=== PATIENT | female | born 1970 | race Caucasian/White ===

== ENCOUNTER → 2018-10-02 07:41 | Outpatient (CLI) | payer OTHER, SELFPAY ==
--- NOTE | 2018-10-02 07:44 | BI_ITS ---
MAMMOGRAPHY - BILATERAL SCREENING REASON FOR EXAM: Female, 47 years old. Routine annual screening examination. PERTINENT HISTORY: Non-contributory. TECHNIQUE: Digital bilateral breast concepcion (3D mammographic acquisition) in the CC and MLO projections. 2-D mediolateral oblique (MLO) and craniocaudad (CC) views of both breasts were obtained. CAD: Full Field Digital Mammography with Computer Added Detection was performed. COMPARISON: Comparison is made with prior outside examination dated January 26, 2017. FINDINGS: Breast Composition: There are scattered areas of fibroglandular density. There are no dominant masses or suspicious calcifications. Stable appearance of the small bilateral axillary lymph nodes. No other significant abnormalities are identified. There has been no significant change since the prior study. BI/SCREEN MAMM (CAD) W/CONCEPCION BILAT IMPRESSION: Stable bilateral screening mammogram. Yearly follow-up mammogram recommended. (A) ASSESSMENT CATEGORY: BIRADS Category 2: Benign. A letter regarding these results will be sent to the patient by the facility within 30 days. Approximately 10% of breast cancers are not detected by mammography. A normal mammogram should not delay biopsy of a clinically suspicious abnormality. [id number] Electronically Signed: Michael Frey, at 10:06 EST , Service support ,
== END ==
PROVIDERS: Referring Provider Nurse Practitioner Women's Health; Visit Provider Nurse Practitioner Women's Health
DX: Z12.31 Encounter for screening mammogram for malignant neoplasm of breast (principal)
CPT/HCPCS: 77063; 77067

== ENCOUNTER → 2019-08-01 10:53 | Outpatient (CLI) | payer OTHER, SELFPAY ==
[2019-08-01 10:23] VITALS: BMI 30.6
[2019-08-01 12:32] LABS: Follicle Stimulating Hormone 47.8 mIU/mL; Thyroid Stim Hormone (TSH) 1.44 uIU/mL (0.358-3.74)
== END ==
PROVIDERS: Family Provider Nurse Practitioner Primary Care; PCP Nurse Practitioner Primary Care; Referring Provider Nurse Practitioner Women's Health; Visit Provider Nurse Practitioner Women's Health
DX: R23.2 Flushing (principal)
CPT/HCPCS: 36415; 83001; 84443

== ENCOUNTER 2019-10-11 12:30 | Outpatient (RCR) | payer OTHER, SELFPAY ==
[2019-08-01 10:23] VITALS: BMI 30.6
--- NOTE | 2019-08-22 09:37 | HP.OTEVAL_ITS ---
Patient's Visit Information BESSIE RUBIO is a 48 year old F, referred to Occupational Therapy by Esmer Miguel, with a diagnosis of L lateral epicondylitis. Date of Evaluation: 08/22/19 Occupational Therapist: Tonya Mahmood, BRIAN/Anaid - Subjective Subjective: Bessie Hanson' arrived and noted that she has been having ongoing L elbow pain for the last 6 months. 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 - ADLs Dressing: Pants, Socks, Shoes Fasteners: Zippers Eating: Cut food, Drink from glass Bathing: Handle washcloth & soap, Squeeze shampoo bottle Toileting: Manage clothing Kitchen: Chop with knife, Peel fruits & vegetables, Open jars, Lift gallon of milk, Pour from pitcher, Lift saucepan, Take dish out of oven, Load/unload child adolescent psychiatrist, Place dish in microwave Household: Laundry Miscellaneous: Turn pages in book, Use computer keyboard, Drive Comments: holding book during storytime Comments: She is R hand dominant but having pain with all bilateral and L sided tasks in L elbow. - Pain L elbow 4 Pain Intensity Range: 1, 8 - Objective Objective/Observation: increased tenderness with palpation of ED and ECRB; positive Cornelius test; increased numbness and tingling with elbow flexion tasks. - ROM Elbow: WFL MP: WFL PIP: WFL DIP: WFL ROM Comments: ROM is WFL. - Strength Soda Dialyzer: flexed R 51, L 26 ; ext position 2 R 31, L 17 Lateral Pinch: R 21, L 15 Tripod Pinch: R 17, L 13 Tip-to-Tip Pinch: R 14, L 10 - Sensation Thumb: R 2.83, L 2.83 Index: R 2.83, L 2.83 Middle: R 2.83, L 2.83 Ring: R 2.83, L 2.83 Little: R 2.83, L 2.83 - Special Tests Elbow Flexion Test - Cubital Tunnel: positive - Quick DASH-Disab of Arm,Shoulder& Hand Quick DASH Score: 48.3325 - Tennis Elbow Tennis Elbow Score: 50 - Goals Goal:: Gianni to increase l toll service observer in flexed and extended positions by 15-20 lbs to promote increased stability of L UE 4/5 trials 80% of the time by d/c. Goal:: Gianni to be (I) to complete pain management provisiona nd not have more than 1/10 pain with repetitive tasks 4/5 trials 80% of the time by d/c. Goal:: Josesito to be (i) to implmenet proper ergonomic and body position techniques to decrease increase load on L UE and elbow 4/5 trials 80% of the time to help manage pain and promote returning to PLOF by d/c. Goal:: Josesito to be (i) to complete all ADL/IADLs including cooking, lifting loaded pots/pans, and general self-care tasks without increase in symptoms 4/5 trials 80% of the time by d/c. Goal:: Josesito to be (I) to complete daily HEP for use of splint, pain management, strenthening with PRE, and general ergonomic techniques to promote decreased symptoms and returning to PLOF 4/5t rials 80% of the time by d/c. - Rehabilitation General Assessment: Josesito completed OT initial evaluation on this date of 08/22/19. She noted symptoms of lateral epicondylitis started about 6 months ago and have progressed with symptoms of pain and discomfort. 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 Josesito to completed skilled OT to promote increase strength, ROM, pain management and provision, ergonomic training and general ability to return to PLOF by discharge. Rehabilitation Potential: Good - Anticipated Interventions Anticipated Interventions: A/AAROM/PROM, Strengthening, Edema Control, Massage, Triggerpoint Release, Modalities, Orthoses, Joint Protection/Energy Conservation, Ergonomic Education, Fine Motor Coord/Danielito, ADL Training, Caregiver Training, Home Program - Visit Plan Frequency: 2x /Week Duration: 4 Weeks General Plan: Josesito to complete skilled OT services to promote pain management, strength, return to ADL/IADLs, and general ability to complete daily tasks without increase in pain by d/c. TEXT: Thank you for the opportunity to evaluate your patient. For Medicare and Medicare HMO plans, please review the plan of care and approve it. It will need to be FAXED BACK to us at [phone] for Medicare purposes. Please let me know if there are questions or concerns regarding this plan of care. Physician Signature: Date:
--- NOTE | 2019-09-13 10:44 | HP.OTREVAL ---
Esmer Miguel, It has been my pleasure to treat BESSIE RUBIO over the last 7 visits for L lateral epicondylitis. Please see the progress note below for an update on the occupational therapy plan of care! Subjective: Arrived 14 mins late due to weather. Noted has follow up with [facility] today. Objective/Function: Completed new measurements today 09/13/19 and results aas follows: Strength. - turret press operator flexed R 59, L 40. - turret press operator ext R 52, L 35. - lateral 19, L 15. - tripod R 14, L 12. - pinch R 10, L 10. Positiontesting for cubitol tunnel. Josesito has increased in both flexed and ext linoleum mechanic strengths. She is progressing well but remains symptomatic. Plan Frequency: 2x /Week Duration: 2 Weeks Visits in this POC: 8 Plan: continue POC for 2x2 weeks for continue strengthening and nerve glides. She has follow- up with at [facility] today. Talked briefly on the potential of cortisone injection if she still feels she is having pain. She noted pain only with extended movements. Numbness and tingling remain intermittently. Also discussed with patient the potential of requesting nerve conduction test. She has been completing HEP which inlcude ulnar nerve and median nerve glides. She has improved but still has some lingering symptoms. OT to continue [id number] to promote continue strength and endurance for L elbow and continue to progress. Goals - Goals Goal:: Gianni to increase l turret press operator in flexed and extended positions by 15-20 lbs to promote increased stability of L UE 4/5 trials 80% of the time by d/c. Goal:: Gianni to be (I) to complete pain management provisiona nd not have more than 1/10 pain with repetitive tasks 4/5 trials 80% of the time by d/c. Goal:: Josesito to be (i) to implmenet proper ergonomic and body position techniques to decrease increase load on L UE and elbow 4/5 trials 80% of the time to help manage pain and promote returning to PLOF by d/c. Goal:: Josesito to be (i) to complete all ADL/IADLs including cooking, lifting loaded pots/pans, and general self-care tasks without increase in symptoms 4/5 trials 80% of the time by d/c. Goal:: Josesito to be (I) to complete daily HEP for use of splint, pain management, strenthening with PRE, and general ergonomic techniques to promote decreased symptoms and returning to PLOF 4/5t rials 80% of the time by d/c. Anticipated Interventions Anticipated Interventions: A/AAROM/PROM, Strengthening, Edema Control, Massage, Triggerpoint Release, Modalities, Orthoses, Joint Protection/Energy Conservation, Ergonomic Education, Fine Motor Coord/Danielito, ADL Training, Caregiver Training, Home Program Please do not hesitate to contact me at [phone] by phone or if you have questions or concerns regarding this new plan of care! Sincerely, Tonya Mahmood, OTR/L
--- NOTE | 2019-10-11 14:19 | HP.OTDCSUM ---
HP - OT D/C Summary It has been my pleasure to treat BESSIE RUBIO under orders from Esmer Miguel, for the diagnosis of L lateral epicondylitis for a total of 11 visit(s). Please see the following information for a summary of their discharge status. - Overall Improvement % Improvement: 92 - Objective Objective/Function: Josesito completed reassessment on this date of 10/11/2019 and results are as follows: Strength: tool and die repair in flexed R 54, L 58 lbs. tool and die repair in ext R 66, L 43 lbs. lateral R 20, L 16 lbs. tripod R 19, L 15 lbs. pincer R 13, L 12 lbs. Josesito has improved significantly with measurements and is no longer having significant pain. - Goals Patient Goals: Regain Mobility, Regain Strength, Decrease Pain, Return to Work, Improve Fine Motor Skills, Use Hand/Wrist/Arm Normally Again, Sleep Better, Decrease Tingling/Numbness, Increase ROM, Be More Independent in ADLS, Resume Former Household Responsibilities (Cooking,Cleaning,Yard, etc.), Resume Hobbies Goal:: Gianni to increase l tool and die repair in flexed and extended positions by 15-20 lbs to promote increased stability of L UE 4/5 trials 80% of the time by d/c. Goal:: Gianni to be (I) to complete pain management provisiona nd not have more than 1/10 pain with repetitive tasks 4/5 trials 80% of the time by d/c. Goal:: Josesito to be (i) to implmenet proper ergonomic and body position techniques to decrease increase load on L UE and elbow 4/5 trials 80% of the time to help manage pain and promote returning to PLOF by d/c. Goal:: Josesito to be (i) to complete all ADL/IADLs including cooking, lifting loaded pots/pans, and general self-care tasks without increase in symptoms 4/5 trials 80% of the time by d/c. Goal:: Josesito to be (I) to complete daily HEP for use of splint, pain management, strenthening with PRE, and general ergonomic techniques to promote decreased symptoms and returning to PLOF 4/5t rials 80% of the time by d/c. - Plan Plan: Josesito has been completing home exercises program and is doing well with all exercises and pain management techniques. She will be d/c'd at this time and is to call with questions/concerns. - D/C Information If there are questions or concerns regarding this patient's occupational therapy, please fell free to call me at [phone]. Thank you for the referral of this patient. Sincerely, Tonya Mahmood, OTR/L
== END 2019-10-11 19:00 | disposition home or self-care (01) ==
LOC: OT 12:30
PROVIDERS: Family Provider Nurse Practitioner Primary Care; PCP Nurse Practitioner Primary Care; Referring Provider Physician Assistant; Visit Provider Physician Assistant
DX: M77.12 Lateral epicondylitis, left elbow (principal)
CPT/HCPCS: 97035; 97110; 97166; 97168; 97530

== ENCOUNTER → 2019-11-19 | Outpatient (CLI) | payer OTHER, SELFPAY ==
[2019-08-01 10:23] VITALS: BMI 30.6
--- NOTE | 2019-11-19 07:43 | BI_ITS ---
MAMMOGRAPHY - BILATERAL SCREENING REASON FOR EXAM: Female, 48 years old. Routine annual screening examination. PERTINENT HISTORY: Non-contributory. TECHNIQUE: Digital bilateral breast concepcion (3D mammographic acquisition) in the CC and MLO projections. 2-D mediolateral oblique (MLO) and craniocaudad (CC) views of both breasts were obtained. CAD: Full Field Digital Mammography with Computer Added Detection was performed. COMPARISON: Comparison is made with prior study dated October 02, 2018. FINDINGS: Breast Composition: There are scattered areas of fibroglandular density. There are no dominant masses or suspicious calcifications. Stable benign-appearing bilateral axillary lymph nodes. No other significant abnormalities are identified. There has been no significant change since the prior study. BI/SCREEN MAMM (CAD) W/CONCEPCION BILAT IMPRESSION: Stable bilateral screening mammogram. Yearly follow-up mammogram recommended. (A) ASSESSMENT CATEGORY: BIRADS Category 2: Benign. A letter regarding these results will be sent to the patient by the facility within 30 days. Approximately 10% of breast cancers are not detected by mammography. A normal mammogram should not delay biopsy of a clinically suspicious abnormality. [id number] Electronically Signed: Michael Frey, at 10:41 EDT , Service support ,
== END | disposition home or self-care (01) ==
PROVIDERS: Family Provider Nurse Practitioner Primary Care; PCP Nurse Practitioner Primary Care; Referring Provider Nurse Practitioner Women's Health; Visit Provider Nurse Practitioner Women's Health
DX: Z12.31 Encounter for screening mammogram for malignant neoplasm of breast (principal)
CPT/HCPCS: 77063; 77067

== ENCOUNTER → 2020-02-27 | Outpatient (CLI) | payer OTHER, SELFPAY ==
[2020-02-27 08:26] VITALS: BMI 29.7
[2020-03-04 16:55] LABS: HPV APTIMA, High Risk Negative (Negative)
== END | disposition home or self-care (01) ==
LOC: LABSPEC 13:31
PROVIDERS: PCP Nurse Practitioner Primary Care; Referring Provider Nurse Practitioner Women's Health; Visit Provider Nurse Practitioner Women's Health
DX: Z12.4 Encounter for screening for malignant neoplasm of cervix (principal)
CPT/HCPCS: 87624; 88175; G0145

== ENCOUNTER → 2021-02-11 11:16 | Outpatient (CLI) | payer OTHER, SELFPAY ==
[2020-02-27 08:26] VITALS: BMI 29.7
--- NOTE | 2021-02-11 11:19 | BI_ITS ---
MAMMOGRAPHY - BILATERAL SCREENING REASON FOR EXAM: Female, 50 years old. Routine annual screening examination. PERTINENT HISTORY: Non-contributory. TECHNIQUE: Digital bilateral breast concepcion (3D mammographic acquisition) in the CC and MLO projections. 2-D mediolateral oblique (MLO) and craniocaudad (CC) views of both breasts were obtained. CAD: Full Field Digital Mammography with Computer Added Detection was performed. COMPARISON: Comparison is made with prior study dated 11/19/2019 and 10/02/2018. FINDINGS: Breast Composition: There are scattered areas of fibroglandular density. There are no dominant masses or suspicious calcifications. Stable small bilateral benign-appearing axillary lymph nodes. No other significant abnormalities are identified. There has been no significant change since the prior study. BI/SCRN MAMM (CAD)W/CONCEPCION BILAT IMPRESSION: Stable bilateral screening mammogram. Yearly follow-up mammogram recommended. (A) ASSESSMENT CATEGORY: BIRADS Category 2: Benign. A letter regarding these results will be sent to the patient by the facility within 30 days. Approximately 10% of breast cancers are not detected by mammography. A normal mammogram should not delay biopsy of a clinically suspicious abnormality. [id number] Electronically Signed: Michael Frey MD at 12:18 EDT , Service support ,
== END ==
PROVIDERS: PCP Nurse Practitioner Primary Care; Referring Provider Nurse Practitioner Women's Health; Visit Provider Nurse Practitioner Women's Health
DX: Z12.31 Encounter for screening mammogram for malignant neoplasm of breast (principal)
CPT/HCPCS: 77063; 77067

== ENCOUNTER → 2022-03-17 | Outpatient (CLI) | payer OTHER, SELFPAY ==
--- NOTE | 2022-03-17 08:10 | BI_ITS ---
MAMMOGRAPHY - BILATERAL SCREENING REASON FOR EXAM: Female, 51 years old. Routine annual screening examination. PERTINENT HISTORY: Non-contributory. TECHNIQUE: Digital bilateral breast concepcion (3D mammographic acquisition) in the CC and MLO projections. 2-D mediolateral oblique (MLO) and craniocaudad (CC) views of both breasts were obtained. CAD: Full Field Digital Mammography with Computer Added Detection was performed. COMPARISON: Comparison is made with prior study dated 02/11/2021 and 11/19/2019. FINDINGS: Breast Composition: There are scattered areas of fibroglandular density. There are no dominant masses or suspicious calcifications. Stable small benign-appearing bilateral axillary lymph nodes. No other significant abnormalities are identified. There has been no significant change since the prior study. BI/SCRN MAMM (CAD)W/CONCEPCION BILAT IMPRESSION: Stable bilateral screening mammogram. Yearly follow-up mammogram recommended. (A) ASSESSMENT CATEGORY: BIRADS Category 2: Benign. A letter regarding these results will be sent to the patient by the facility within 30 days. Approximately 10% of breast cancers are not detected by mammography. A normal mammogram should not delay biopsy of a clinically suspicious abnormality. [id number] Electronically Signed: Michael Frey MD at 9:04 EDT ,
== END | disposition home or self-care (01) ==
LOC: OPBI 08:09
PROVIDERS: PCP Nurse Practitioner Primary Care; Visit Provider Nurse Practitioner Women's Health
DX: Z12.31 Encounter for screening mammogram for malignant neoplasm of breast (principal)
CPT/HCPCS: 77063; 77067

== ENCOUNTER 2023-01-27 08:00 | Outpatient (RCR) | payer OTHER, SELFPAY ==
--- NOTE | 2022-12-02 10:46 | HP.PTEVAL ---
Patient's Visit Information BESSIE RUBIO is a 52 year old F referred to Physical Therapy by Catherine Sotelo NP-Leonidas with a diagnosis of LBP. Date of Evaluation: 12/02/22 Physical Therapist: Taran Munoz DPT, OCS, CSCS - Visit Plan Frequency: 3x /Week Duration: 4-6 Weeks Plan: 3x/week for 4 weeks for. 1. Lumbar ext ex, lumbar and thoracic ext mobs, postural focus. 2. progress mat based DLS to HEP, remodelling flexion ex when pain gone. 3. TENS and STM if painful at rest as needed. body mechanics. - Subjective LBP into central butt. Has h/o back pain. This started late october putting together puzzles and was sitting crummy posture a whole lot for 5 hrs per day. back got worse as she went. Mostly OK once she is up and moving. Goes into HS B at times L>R. Worse with sitting and much worse getting up. Cannot sit through whole [employer] service. Sleep is OK but wakes up early at 5:30 with achiness. Getting up out of bed and chairs is difficult. 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 Hobbies include walking and that is going OK after the first minute. Has tried no other treatments - Pain LBP Pain Intensity (Out of 10): 2 Pain Intensity Range: 0, 7 - Objective Walks easily without problems, , transfers with obvious pain, more pain as she sits and tends to sacral sit with flat lordosis rather than keep curvature. Tender to PA pressure slightly in mid lumbar spine. Lumbar AROM ext mod limited and painful centrally, SB full and slight L pain, flexion hesitant but able. + SLR L and + slump L >R. reflexes 2/3 patella and achilles. Sensation LE WNL to gross light touch. Shows no myotoomal abnormalities but weakness L leg due to pain. repetitive extension and seated extension shows improved transfer with less pain. - Balance/Special Test Scores Oswestry Low Back Score: 19 - Goals Goal 1:: Full lumbar arom without pain Goal Time Frame: 4-6 Weeks Goal 2:: patient trasnfer without evidence pain Goal Time Frame: 4-6 Weeks Goal 3:: Pt feel 90% better and 1/10 pain Goal Time Frame: 4-6 Weeks Goal 4:: I appropriate management of condition, body mechanics HEp of DLS Goal Time Frame: 4-6 Weeks - Rehabilitation Potential Physical Therapy Diagnosis: Likely discal pathology creating pain and difficult movement. Rehabilitation Potential: Good - Anticipated Interventions Patient/Client Instruction: Educate patient on: Condition, Plan of Care For the Purpose of:: To decrease pain, To increase ROM, To improve nutrient delivery to tissue, To improve muscle performance and motor function, To increase tolerance to activity/condition/position, To improve ability of physical actions for home/community/work/leisure Therapeutic Exercise to Include: Strength training, Postural training, Passive ROM, Active ROM For the Purpose of:: To decrease pain, To increase ROM, To improve nutrient delivery to tissue, To increase tolerance to activity/condition/position Manual Therapy Techniques to Include: Mobilization, Passive ROM, Soft tissue mobilization For the Purpose of:: To decrease pain, To decrease swelling/inflammation, To increase ROM, To improve nutrient delivery to tissue TENS: Yes For the Purpose of:: To decrease pain, To increase ROM, To improve nutrient delivery to tissue, To improve muscle performance and motor function, To improve ability of physical actions for home/community/work/leisure Thank you for the opportunity to evaluate your patient. For Medicare and Medicare HMO plans, please review the plan of care and approve it. It will need to be FAXED BACK to us at [phone] for Medicare purposes. For Medicare only, by signing this I certify the plan of care. Please let me know if there are questions or concerns regarding this plan of care. Physician Signature: Date:
--- NOTE | 2023-01-27 08:48 | HP.PTREVAL_ITS ---
Catherine Sotelo, AUTOMATIC NAILING MACHINE OPERATOR-C, It has been my pleasure to treat BESSIE RUBIO over the last 13 visits for LBP. Please see the progress note below for an update on the physical therapy plan of care! Subjective: I can sit much longer than I used to. However Pain in L posterior upper leg and numbness in L heel. MRI showed disc problems and sees spine doctor today at 3 oclock. Was improving but then tingling started. HEP going well. Getting stronger. Activities: avoids pifting things from the floor. Otherwise normal. Objective/Function: LB ext still max limited and painful in L posterior leg. + L SLR still and slump test. Tingling in L leg is mostly new since eval. Otherwise, pain is much better and able to sit longer. Walking well without antalgia today although sensation in L LE doesn't feel perfect. New goal set adn goals still appropriate with fair prognosis as she is currently 80% improved. Plan Plan: Pt wishes to hold until after spinal consult. Will call after that visit. if continuing PT will do 2x/week for 3-4 weeks for continued attempted ROM, body mechanics with lifting, aggressive LB stretching to yoga and progression of overall home core [id number] as needed. Balance/Gait/Functional tests - Balance/Special Test Scores Oswestry Low Back Score: 9 Goals Goal 1:: Full lumbar arom without pain Goal Time Frame: 4-6 Weeks Goal Progress: ext not better Goal 2:: patient trasnfer without evidence pain Goal Time Frame: 4-6 Weeks Goal Progress: Goal Met Goal 3:: Pt feel 90% better and 1/10 pain Goal Time Frame: 4-6 Weeks Goal Progress: 80% Goal 4:: I appropriate management of condition, body mechanics HEp of DLS Goal Time Frame: 4-6 Weeks Goal Progress: Progressing Goal 5:: Tingling gone and I final HEP including body mechanics. Goal Time Frame: 2-4 Weeks Goal Progress: NEW GOAL Anticipated Interventions Patient/Client Instruction: Educate patient on: Condition, Plan of Care For the Purpose of:: To decrease pain, To increase ROM, To improve nutrient delivery to tissue, To improve muscle performance and motor function, To increase tolerance to activity/condition/position, To improve ability of physical actions for home/community/work/leisure Therapeutic Exercise to Include: Strength training, Postural training, Passive ROM, Active ROM For the Purpose of:: To decrease pain, To increase ROM, To improve nutrient delivery to tissue, To increase tolerance to activity/condition/position Manual Therapy Techniques to Include: Mobilization, Passive ROM, Soft tissue mobilization For the Purpose of:: To decrease pain, To decrease swelling/inflammation, To increase ROM, To improve nutrient delivery to tissue TENS: Yes For the Purpose of:: To decrease pain, To increase ROM, To improve nutrient delivery to tissue, To improve muscle performance and motor function, To improve ability of physical actions for home/community/work/leisure Please do not hesitate to contact me at [phone] by phone or if you have questions or concerns regarding this new plan of care! Sincerely, Taran Munoz, DPT, OCS, CSCS
--- NOTE | 2023-01-30 12:48 | HP.PTDCSUM_ITS ---
It has been my pleasure to treat BESSIE RUBIO referred by PATRICIA Langford, with the diagnosis of LBP for a total of 13 visit(s). Discharge Date: 01/30/23 Please see the following information for a summary of their discharge status. Subjective: I can sit much longer than I used to. However Pain in L posterior upper leg and numbness in L heel. MRI showed disc problems and sees spine doctor today at 3 oclock. Was improving but then tingling started. HEP going well. Getting stronger. Activities: avoids pifting things from the floor. O therwise normal. LBP Pain Intensity (Out of 10): 1 % Improvement: 80 Objective/Function: LB ext still max limited and painful in L posterior leg. + L SLR still and slump test. Tingling in L leg is mostly new since eval. Otherwise, pain is much better and able to sit longer. Walking well without antalgia today although sensation in L LE doesn't feel perfect. New goal set adn goals still appropriate with fair prognosis as she is currently 80% improved. Goal 1:: Full lumbar arom without pain Goal Progress: ext not better Goal 2:: patient trasnfer without evidence pain Goal Progress: Goal Met Goal 3:: Pt feel 90% better and 1/10 pain Goal Progress: 80% Goal 4:: I appropriate management of condition, body mechanics HEp of DLS Goal Progress: Progressing Goal 5:: Tingling gone and I final HEP including body mechanics. Goal Progress: NEW GOAL Plan: Pt called and has seen spinal surgeon and will be having surgery in the near future. She will not be returning to PT prior to that and will be discontinued. Discharge Comments: D/C due to pending surgery If there are questions or concerns regarding this patient's physical therapy, please feel free to call me at [phone]. Thank you for the referral of this patient. Sincerely, Taran Munoz, DPT, OCS, CSCS Balance/Gait/Functional tests - Balance/Special Test Scores Oswestry Low Back Score: 9
== END 2023-01-27 19:00 | disposition home or self-care (01) ==
LOC: PT 08:00
PROVIDERS: PCP Nurse Practitioner Primary Care; Referring Provider Nurse Practitioner Primary Care; Visit Provider Nurse Practitioner Primary Care
DX: M54.50 Low back pain, unspecified (principal)
CPT/HCPCS: 97014; 97110; 97140; 97161; 97164; 97530; G0283

== ENCOUNTER → 2023-07-04 | Outpatient (CLI) | payer OTHER, SELFPAY | END | disposition home or self-care (01) | LOC: LABSPEC 15:29 | PROVIDERS: PCP Nurse Practitioner Primary Care; Referring Provider Nurse Practitioner Women's Health; Visit Provider Nurse Practitioner Women's Health | DX: N89.8 Other specified noninflammatory disorders of vagina (principal); R30.0 Dysuria | CPT/HCPCS: 87070; 87086; 87205 ==

== ENCOUNTER 2023-07-05 13:00 | Outpatient (RCR) | payer OTHER, SELFPAY ==
--- NOTE | 2023-04-05 10:06 | HP.PTEVAL ---
Patient's Visit Information Visit Information Visit Information: BESSIE RUBIO is a 52 year old F referred to Physical Therapy by Dr. Genaro Barajas DO with a diagnosis of LUMBAR SPINAL STENOSIS. Date of Evaluation: 04/05/23 Physical Therapist: Francine Veras PT, Cert MDT Visit Plan Frequency: 2-3x /Week Duration: 4-6 Weeks Plan: POSTURE CORRECTION/STRENGTHENING, INSTRUCTION IN APPROPRIATE *BODY MECHANICS* AND ACTIVITY MODIFICATIONS. DLS STARTING WITH A NEUTRAL SPINE PROGRESSING ROM TOLERATED. CHUCK LE ROM, STRETCHING AND STRENGTHENING. HEP INSTRUCTION. Subjective Subjective: SURGERY: S/P LAMINECTOMY/DISCECTOMY 03/14/[address] BARAJAS Work/Leisure: UNEMPLOYEED. STAY AT HOME MOM WITH 2 KIDS AT HOME. Disability: NO Present symptoms: LOW BACK PAIN (MAINLY INCISIONAL), L HIP PAIN AND TIGHTNESS. CHUCK LE WEAKNESS AND GENERAL WEAKNESS. DENIES CHUCK LE NUMBNESS OR TINGLING. L FOOT TINGLING/NUMBNESS PRIOR TO SURGERY. Present since: 20 YEARS WITH FLARE UP IN OCTOBER 2022 Pain Scale: WORST 3/10, LEAST 0/10 Currently: 0/10 Is it getting better, worse or staying the same: GETTING BETTER Commenced as a result of: FLARE UP WAS CAUSED BY PROLONGED SITTING Symptoms at onset: LBP Worse: WALKING Better: ICE, STRETCHING Disturbed sleep: NO Previous history/Previous treatment: PHYSICAL THERAPY Treatment this episode: BACK SURGERY Gait: WALKING 30 MIN 2 TIMES A DAY. MY FOOT TURNS OUT. PATIENT REPORTS HER HIP GETS TIGHT WHEN SHE TRIES TO TURN HER FOOT FORWARD AND IT IS MORE COMFORTABLE TO TURN IT OUT BUT IT IS GETTING BETTER. Bowel or Bladder Dysfunction: NO Accidents: NO Unexplained weight loss: NO Imaging: NONE SINCE SURGERY PMH/Recent major surgery: DEPRESSION AND FIBROMYALGIA. OTHER: PATIENT REPORTS DR. BARAJAS LIFTED ALL OF HER RESTRICTIONS AT HER LAST VISIT WITH HIM 2 DAYS AGO (EXCEPT GOING INTO BODIES OF WATER). Objective Objective: Sitting/Standing Posture: POOR. REDUCED LUMBAR LORDOSIS. NO RELEVANT LATERAL SHIFT. Active Correction of posture: NE Other Observations: THIS PATIENT AMBULATES INDEP'LY INTO PT WITHOUT ANY AD'S AND TOEING OUT WITH R LE (ABLE TO CORRECT). INDEP TRANSFER SIT TO STAND WITHOUT UE ASSIST. INDEP TRANSFERS SIT TO SUPINE AND REVERSE WITH MINIMAL GUARDING. Sensory deficit: CHUCK LE LIGHT TOUCH SENSATION IS GROSSLY INTACT AND SYMMETRICAL. ROM deficit: CHUCK HIP, HS, AND GASTROC-SOLEUS COMPLEX TIGHTNESS L>R Motor deficit: R HIP 4/5, KNEE 5/5, ANKLE 5/5. L HIP 4-/5, KNEE 4/5, ANKLE 5/5 Reflexes: R QUAD 2/3, ACHILLES 2/3. L QUAD 1/3, ACHILLES ABSENT. Dural Signs: POSITIVE LLE. Lumbar mvmt loss: flex - MOD ext - LONA R SG - MOD L SG - LONA PATIENT DENIES PAIN WITH LUMBAR ROM TESTING ALL PLANES. REPORTS FEELING L HS PULL WITH LUMBAR FLEXION TESTING. Core strength: POOR Palpation: INCISION IS COVERED. PATIENT REPORTS JUST RECENTLY HAVING TOMY REMOVED AND THAT INCISION IS CLOSED WITHOUT ANY OPEN AREAS OR DRAINAGE BUT IT RUBS ON HER CLOTHES SO SHE WAS TOLD TO COVER IT UNTIL IT FEELS BETTER. THIS PT REVIEWED SIGNS OF INFECTION AND INSTRUCTED PATIENT TO SEEK MEDICAL ATTENTION RIGHT AWAY IF SIGNS DEVELOP. 30 STS TEST: X10 WITH NO UE ASSIST. TREATMENT: NEUROMUSCULAR REEDUCATION - RETRAINING OF MVMT AND POSTURE FOR SITTING, LYING AND STANDING ACTIVITIES. INITIATED HEP WITH SUPINE ISO ABDOMINALS X 10, 3 TIMES A DAY AND SUPINE CHUCK LE DURAL STRETCHING X 10 TO 20 REPS 5-6 TIMES A DAY. Balance/Special Test Scores Oswestry Low Back Score: 14 30 Second Chair Rise Test Seconds: 10 Goals Goal 1:: DECREASE C/O LB AND L LE SX'S. Goal Time Frame: 4-6 Weeks Goal 2:: IMPROVE LIFTING, WALKING, SITTING, SOCIAL LIFE, TRAVEL AND HOMEMAKING FUNCTION. Goal Time Frame: 4-6 Weeks Goal 3:: INSTRUCT IN PROPHYLAXIS Goal Time Frame: 4-6 Weeks Anticipated Interventions Patient/Client Instruction: Educate patient on: Condition, Plan of Care and Risk Factors For the Purpose of:: To improve self management Therapeutic Exercise to Include: Strength training, Body mechanics, Postural training, Flexibilty training, Neuromotor development, In an aquatic setting and Dynamic Lumbar Stabilization For the Purpose of:: To decrease pain, To increase ROM, To improve muscle performance and motor function, To increase tolerance to activity/condition/position and To improve ability of physical actions for home/community/work/leisure Cryotherapy (ice pack, ice massage): Yes Thermo therapy (hot pack): Yes For the Purpose of:: To decrease pain and To decrease swelling/inflammation Text: Thank you for the opportunity to evaluate your patient. For Medicare and Medicare HMO plans, please review the plan of care and approve it. It will need to be FAXED BACK to us at [phone] for Medicare purposes. For Medicare only, by signing this I certify the plan of care. Please let me know if there are questions or concerns regarding this plan of care. Physician Signature: Date:
--- NOTE | 2023-05-18 09:51 | HP.PTREVAL ---
Re-Evaluation Intro: Dr. Genaro Ortega, DO, It has been my pleasure to treat BESSIE RUBIO over the last 11 visits for LUMBAR SPINAL STENOSIS. Please see the progress note below for an update on the physical therapy plan of care! Subjective Subjective: PATIENT STATES SHE HASN'T BEEN HAVING ANY PAIN. SHE REPORTS SHE IS LEARNING HOW TO MOVE IN EVERYDAY LIFE. I CAN SIT THROUGH A [employer]ORATION[employer] SERVICE OR TO TRAVEL NOW. I CAN LIFT MORE AND I CAN BEND MORE TO. SHE STATES HER LEFT FOOT STILL GOES NUMB IF SHE WALKS OR SITS OR TOO MUCH. NO L FOOT NUMBNESS PRESENTLY. PATIENT REPORTS SHE IS WALKING 30 MINUTES DAILY FOR EXERCISE WITHOUT ANY SYMPTOMS. PATIENT STATES SHE IS HOPING TO BE ABLE TO CONTINUE PT TO MAKE MORE PROGRESS AND BE ABLE TO SAFELY EXERCISE ON HER OWN HERE AT . PATIENT REPORTS SHE ANSWERED THE questionnaire IN TERMS OF NUMBNESS NOT PAIN. Objective Objective/Function: PATIENT WAS SEEN TODAY FOR RE-ASSESSMENT OF PROGRESS TOWARD THE SET PT GOALS AND THE NEED FOR FURTHER PHYSICAL THERAPY VS READINESS FOR DISCHARGE. PATIENT IS MAKING GOOD PROGRESS WITH PT AND BECOMING INDEP WITH AN EX PROGRAM. SHE WANTS TO JOIN [employer] [facility] UPON DISCHARGE BUT IS NOT COMFORTABLE ON THE MACHINES YET AND HAS A HISTORY OF BACK PAIN FROM USING GYM MACHINES IN THE PAST. HER LUMBAR ROM, L HIP STRENGTH AND CORE STRENGTH ARE IMPROVING. SHE IS A GOOD CANDIDATE TO CONTINUE PT BASED ON PROGRESS MADE AND ROOM FOR FURTHER IMPROVEMENT. UPON EXAM TODAY: Sensory deficit: CHUCK LE LIGHT TOUCH SENSATION IS GROSSLY INTACT AND SYMMETRICAL. ROM deficit: CHUCK HS, AND GASTROC TIGHTNESS L>R Motor deficit: R HIP 4/5, KNEE 5/5, ANKLE 5/5. L HIP 4/5, KNEE 4/5, ANKLE 5/5 Reflexes: R QUAD 2/3, ACHILLES 2/3. L QUAD 1/3, ACHILLES ABSENT. Dural Signs: NEGATIVE CHUCK LE'S. Lumbar mvmt loss: flex - MIN ext - MOD R SG - MOD L SG - MOD PATIENT DENIES PAIN WITH LUMBAR ROM TESTING ALL PLANES. CORE STRENGTH: FAIR. Plan Plan Plan: CONTINUE 2X/WK X 3 WKS THEN 1X/WK X 3 WKS WHILE PROGRESSING TO INDEP GYM EX. ADD CALF STRETCHING NEXT VISIT. PROGRESS CORE AND POSTURAL STRENGTHENING TOLERATED. PROGRESS LUMBAR ROM TOLERATED. PROGRESS CHUCK LE ROM, STRETCHING AND STRENGTHEING. AVOID PERIPHERALIZATION OF SX'S AND FOCUS ON PROPER POSTURE CONTROL AND BODY MECHANICS WITH INDEP EX. Balance/Gait/Functional tests Balance/Special Test Scores Oswestry Low Back Score: 10 30 Second Chair Rise Test Seconds: 10 Goals Goals Goal 1:: DECREASE C/O LB AND L LE SX'S. Goal Time Frame: 4-6 Weeks Goal Progress: Goal Met Goal 2:: IMPROVE LIFTING, WALKING, SITTING, SOCIAL LIFE, TRAVEL AND HOMEMAKING FUNCTION. Goal Time Frame: 4-6 Weeks Goal Progress: Progressing Goal 3:: INSTRUCT IN PROPHYLAXIS Goal Time Frame: 4-6 Weeks Goal Progress: Progressing Anticipated Interventions Anticipated Interventions Patient/Client Instruction: Educate patient on: Condition, Plan of Care and Risk Factors For the Purpose of:: To improve self management Therapeutic Exercise to Include: Strength training, Body mechanics, Postural training, Flexibilty training, Neuromotor development, In an aquatic setting and Dynamic Lumbar Stabilization For the Purpose of:: To decrease pain, To increase ROM, To improve muscle performance and motor function, To increase tolerance to activity/condition/position and To improve ability of physical actions for home/community/work/leisure Cryotherapy (ice pack, ice massage): Yes Thermo therapy (hot pack): Yes For the Purpose of:: To decrease pain and To decrease swelling/inflammation Re-Evaluation Ending Re-evaluation ending: Please do not hesitate to contact me at [phone] by phone or if you have questions or concerns regarding this new plan of care! Sincerely, Francine Veras, PT, Cert MDT
--- NOTE | 2023-07-05 13:33 | HP.PTDCSUM ---
Discharge Summary D/C summary: It has been my pleasure to treat BESSIE RUBIO referred by Dr. Genaro Ortega DO, with the diagnosis of LUMBAR SPINAL STENOSIS for a total of 19 visit(s). Discharge Date: 07/05/23 Please see the following information for a summary of their discharge status. Subjective Subjective: PATIENT REPORTS SHE FEELS 100% BETTER. I FEEL STRONGER IN MY BACK AND I'VE LEARNED TO TRUST MY BACK. SHE STATES SHE FEELS COMFORTABLE WITH HER INDEP EX PROGRAM AND IS A MEMBER OF . Overall Improvement % Improvement: 100 Objective Objective/Function: PATIENT WAS SEEN FOR RE-ASSESSMENT TODAY. ALL PT GOALS HAVE BEEN MET AND PATIENT IS INDEP WITH A HEP. Motor deficit: CHUCK LE'S 5/5. Dural Signs: NEGATIVE CHUCK LE'S. Lumbar mvmt loss: flex - MIN ext - MOD R SG - MOD L SG - MOD PATIENT DENIES PAIN WITH LUMBAR ROM TESTING ALL PLANES. CORE STRENGTH: FAIR. Goals Goal 1:: DECREASE C/O LB AND L LE SX'S. Goal Progress: Goal Met Goal 2:: IMPROVE LIFTING, WALKING, SITTING, SOCIAL LIFE, TRAVEL AND HOMEMAKING FUNCTION. Goal Progress: Goal Met Goal 3:: INSTRUCT IN PROPHYLAXIS Goal Progress: Goal Met Plan Plan: D/C. PATIENT AGREEABLE. D/C Information d/c sentence: If there are questions or concerns regarding this patient's physical therapy, please feel free to call me at [phone]. Thank you for the referral of this patient. Sincerely, Francine Veras, PT, Cert MDT Balance/Gait/Functional tests Balance/Special Test Scores Oswestry Low Back Score: 0 30 Second Chair Rise Test Seconds: 10 Improvement % Improvement: 100
== END 2023-07-05 19:00 | disposition home or self-care (01) ==
LOC: PT 13:00
PROVIDERS: PCP Nurse Practitioner Primary Care; Referring Provider Orthopaedic Surgery; Visit Provider Orthopaedic Surgery
DX: M51.27 Other intervertebral disc displacement, lumbosacral region (principal); M48.061 Spinal stenosis, lumbar region without neurogenic claudication
CPT/HCPCS: 97110; 97112; 97162; 97164; 97530

== ENCOUNTER → 2023-07-06 | Outpatient (CLI) | payer OTHER, SELFPAY ==
--- NOTE | 2023-07-06 14:51 | BI_ITS ---
MAMMOGRAPHY - BILATERAL SCREENING REASON FOR EXAM: Female, 52 years old. Routine annual screening examination. PERTINENT HISTORY: Non-contributory. TECHNIQUE: Digital bilateral breast concepcion (3D mammographic acquisition) in the CC and MLO projections. 2-D mediolateral oblique (MLO) and craniocaudad (CC) views of both breasts were obtained. CAD: Full Field Digital Mammography with Computer Added Detection was performed. COMPARISON: Comparison is made with prior examination dated March 17, 2022 and February 11, 2021. FINDINGS: Breast Composition: There are scattered areas of fibroglandular density. There are no dominant masses or suspicious calcifications. Stable benign-appearing bilateral axillary lymph nodes. No other significant abnormalities are identified. There has been no significant change since the prior study. BI/SCRN MAMM (CAD)W/CONCEPCION BILAT IMPRESSION: Stable bilateral screening mammogram. Yearly follow-up mammogram recommended. (A) ASSESSMENT CATEGORY: BIRADS Category 2: Benign. A letter regarding these results will be sent to the patient by the facility within 30 days. Approximately 10% of breast cancers are not detected by mammography. A normal mammogram should not delay biopsy of a clinically suspicious abnormality. [id number] Electronically Signed: Michael Frey MD at 15:30 EST ,
== END | disposition home or self-care (01) ==
LOC: OPBI 14:50
PROVIDERS: PCP Nurse Practitioner Primary Care; Referring Provider Registered Nurse; Visit Provider Registered Nurse
DX: Z12.31 Encounter for screening mammogram for malignant neoplasm of breast (principal)
CPT/HCPCS: 77063; 77067

== ENCOUNTER → 2023-10-04 | Outpatient (CLI) | payer OTHER, SELFPAY ==
--- NOTE | 2023-10-04 | EMB_PTH ---
PATHOLOGY RESULTS PATIENT: BESSIE RUBIO LOC: [facility] U#:[id number] AGE/SX: 52/F ROOM: RE10/04/[address]: PATRICIA Salinas : 1970 BED: DIS: 10/04/2023 SPEC #: [id number] RECD: 10/04/23 08:59 STATUS: KYA GUZMAN #: [id number] SANTIAGO: 10/04/23 00:[address]: Bushra Guerrero NP DEPT: SURGICAL PATHOLOGY RECD BY: Pablo West ENTERED: 10/05/23 08:59 SP TYPE: ENDOM BX/C JO-ANN DR: PATRICIA Langford Tissues: Endometrium, NOS Procedures: Surgery Specimen Level IV HEADER OPERATION: Endometrial biopsy PRE-OP DIAGNOSIS: Abnormal uterine bleeding TISSUE SUBMITTED: Endometrial tissue MICROSCOPIC DIAGNOSIS Endometrium, biopsy: Scant strips of benign superficial glandular mucosa. See comment. AM:mark 10/06/2023 COMMENT The specimen primarily consists of mucoid material. Clinical correlation is suggested. MICROSCOPIC DESCRIPTION Slides are reviewed. GROSS DESCRIPTION Received in fixative is one container labeled with the patient's name and designated endometrial tissue. The specimen consists of multiple irregular fragments of gonzalez mucoid tissue that in aggregate measure 2.0 x 1.0 x <0.1 cm. The specimen is totally submitted in one cassette. / AM:mark 10/05/2023 TC:5 CPT: 52385
== END | disposition home or self-care (01) ==
LOC: LABSPEC 15:20
PROVIDERS: PCP Nurse Practitioner Primary Care; Referring Provider Nurse Practitioner Women's Health; Visit Provider Nurse Practitioner Women's Health
DX: N93.9 Abnormal uterine and vaginal bleeding, unspecified (principal)
CPT/HCPCS: 88305

== ENCOUNTER → 2023-10-10 | Outpatient (CLI) | payer OTHER, SELFPAY ==
--- NOTE | 2023-10-10 12:25 | US_ITS ---
INDICATION: postmenopausal bleeding EXAMINATION: Ultrasound US Pelvis Non OB Complete With Transvaginal Imaging TECHNIQUE: Transabdominal and transvaginal pelvic ultrasound was performed. Grayscale, spectral waveform, and color flow Doppler evaluation of the adnexa. COMPARISON: No relevant prior comparison study available FINDINGS: UTERUS: Anteverted. The uterus measures 8.9 x 5.4 x 4.4 cm. There is no uterine mass. The endometrial stripe measures 5.4 mm in AP diameter which is slightly thickened for a postmenopausal bleeding patient. RIGHT OVARY: 2.8 1.7 x 1.6 cm. Non-enlarged, normal echogenicity. There is normal arterial inflow and venous outflow present in the right ovary. LEFT OVARY: 2.5 x 1.6 x 1 6 cm. Non-enlarged, normal echogenicity. There is normal arterial inflow and venous outflow present in the left ovary. FREE FLUID: None. US/Pelvic w/ Transvaginal IMPRESSION: 1. Somewhat heterogeneous uterus. 2. Mild thickening of the endometrium for a postmenopausal bleeding patient. EMERGENCY DEPARTMENT AIDE consult is recommended to exclude endometrial abnormality. Electronically Signed: Raul Balderrama MD at 15:35 EST ,
--- OUTSIDE RECORDS SUMMARY | 2023-10-10 12:57 | XMS RPT_ITS | CCD ---
Author Name Unknown Address [address] [place] [address] Organization [facility] Care Team Providers Care Lab Courier Name Role Phone BRANDEN IVY, STACIE Mirza Primary Care Debby n BRANDEN IVY, STACIE Mirza Attending Unava ilable BRANDEN IVY, STACIE S Primary Care Unava ilable JACLYN BARAJAS DO Attending Unavailable BRANDEN PROGRAM MANAGER-SOLAR INSTALLATION MANAGER, STACIE S Primary Care Unava ilable BRANDEN LEIVA-SOLAR INSTALLATION MANAGER, STACIE S Primary Care Unava ilable KIRSTEN GUERRA MD, I Consulting Unavailable OZZY SAMUELS, KIRSTEN Bentley Attending Unavailable BRANDENKACEY FRANCISCON-SOLAR INSTALLATION MANAGER, STACIE S Primary Care Unava laureen GUERRA MD, KIRSTEN Bentley Attending Unavailable BRANDENKACEY LEIVA-SOLAR INSTALLATION MANAGER, STACIE S Primary Care Unava ilable OZZY SAMUELS, KIRSTEN Bentley Consulting Unavailable OZZY SAMUELS, KIRSTEN Bentley Attending Unavailable BRANDEN PROGRAM MANAGER-SOLAR INSTALLATION MANAGER, STACIE S Primary Care Unava ilable BRANDEN LEIVA-SOLAR INSTALLATION MANAGER, STACIE S Attending Unava ilable BRANDEN LEIVA-SOLAR INSTALLATION MANAGER, STACIE S Primary Care Unava ilable BRANDEN LEIVA-SOLAR INSTALLATION MANAGER, STACIE S Attending Unava ilable Janell Lynn Unavailable Unavailable Allergies Allergy Classification Reported Allergen(s) Allergy Type Date of Onset Reaction(s) Facility (1 source) Adhesive bandage Allergy to substance Blisters [facility] Medications Current Medications Medication Drug Class(es) Dates Sig (Normalized) Sig (Original) 24 hr buPROPion hydrochloride 300 mg extended release oral tablet (5 sources) Aminoketone Start: 01-11-2021 End: 2022 take 1 tablet by mouth every hour, then take 1 tablet by mouth once daily Wellbutrin XL 300 mg/24 hours oral tablet, extended release Dose : 300 mg = 1 tab(s), Oral, qDay, # 30 tab(s), 11 Refill(s), 170, cm, 11/30/21 9:02:00 EDT, Height, kg, 11/30/21 9:02:00 EDT, Dosing Weight Start Date: 11/30/21 Stop Date: 11/25/22 Status: Ordered Completed/Discontinued Medications Medication Drug Class(es) Dates Sig (Normalized) Sig (Original) zolpidem tartrate 6.25 mg extended release oral tablet (6 sources) gamma-Aminobutyric Acid-ergic Agonist Start: 08-24-2023 zolpidem 6.25 mg oral tablet, extended release Dose : 6.25 mg = 1 tab(s), Oral, qHS, PRN as needed for sleep, 0 Refill(s), 92.9 Start Date: 08/24/23 Status: Ordered Problems Problem Classification Problem Date Documented Date Episodic/Chronic Abdominal pain (3 sources) Upper abdominal pain 11-27-2019 Episodic Anxiety disorders (9 sources) Anxiety; Translations: [Generalized anxiety disorder] 06-05-2019 Chronic Cardiac dysrhythmias (6 sources) Tachycardia 09-10-2020 Episodic Esophageal disorders (5 sources) Gastroesophageal reflux disease 12-05-2019 Chronic Mood disorders (6 sources) Depressive disorder 06-05-2019 Chronic Nonspecific chest pain (5 sources) Chest discomfort 09-10-2020 Episodic Other connective tissue disease (6 sources) Fibromyalgia 06-05-2019 Episodic Other connective tissue disease (3 sources) Triggering of digit 06-06-2019 Episodic Other connective tissue disease (2 sources) Pain in calf 12-29-2022 Episodic Other non-traumatic joint disorders (1 source) Shoulder joint pain; Translations: [Pain in unspecified shoulder] Onset: 06-02-2021 Episodic Other upper respiratory disease (6 sources) Allergic rhinitis 11-19-2020 Chronic Residual codes; unclassified (6 sources) Sleep apnea 12-05-2019 Chronic Residual codes; unclassified (6 sources) Insomnia 12-05-2019 Episodic Spondylosis; intervertebral disc disorders; other back problems (1 source) Prolapsed lumbar intervertebral disc 01-24-2023 Chronic Spondylosis; intervertebral disc disorders; other back problems (7 sources) Acute back pain with sciatica; Translations: [Low back pain] 12-03-2019 Episodic Unclassified (7 sources) Patient encounter status 05-20-2021 Urinary tract infections (3 sources) Cystitis 02-16-2022 Episodic Results Test Name Value Interpretation Reference Range Facil ity Vital Signs Date Time Vital Sign Value Performing Clinician Faci lity 09-01-2023 14:40-0500 Body temperature 97.16 [degF] KIRSTEN GUERRA MD [facility] 09-01-2023 14:40-0500 Diastolic blood pressure 72 mm[Hg] KIRSTEN GUERRA MD [facility] 09-01-2023 14:40-0500 Heart rate 88 /min KIRSTEN GUERRA MD [facility] 09-01-2023 14:40-0500 Respiratory rate 18 /min KIRSTEN GUERRA MD [facility] 09-01-2023 14:40-0500 Systolic blood pressure 124 mm[Hg] KIRSTEN GUERRA MD [facility] 09-01-2023 13:44-0500 Body temperature 96.8 [degF] KIRSTEN GUERRA MD [facility] 09-01-2023 13:44-0500 Diastolic Blood Pressure Non-Invasive 71 mm[Hg] KIRSTEN GUERRA MD [facility] 09-01-2023 13:44-0500 Heart rate 88 /min KIRSTEN GUERRA MD [facility] 09-01-2023 13:44-0500 Respiratory rate 18 /min KIRSTEN GUERRA MD [facility] 09-01-2023 13:44-0500 Systolic Blood Pressure Non-Invasive 120 mm[Hg] KIRSTEN GUERRA MD [facility] 09-01-2023 13:28-0500 Body temperature 96.8 [degF] KIRSTEN GUERRA MD [facility] 09-01-2023 13:28-0500 Diastolic Blood Pressure Non-Invasive 63 mm[Hg] KIRSTEN GUERRA MD [facility] 09-01-2023 13:28-0500 Heart rate 88 /min KIRSTEN GUERRA MD [facility] 09-01-2023 13:28-0500 Mean blood pressure 77 mm[Hg] KRISTEN GUERRA MD [facility] 09-01-2023 13:28-0500 Respiratory rate 18 /min KIRSTEN GEURRA MD [facility] 09-01-2023 13:28-0500 Systolic Blood Pressure Non-Invasive 113 mm[Hg] KIRSTEN GUERRA MD [facility] 09-01-2023 13:13-0500 Diastolic Blood Pressure Non-Invasive 62 mm[Hg] KIRSTEN GUERRA MD [facility] 09-01-2023 13:13-0500 Heart rate 82 /min KIRSTEN GUERRA MD [facility] 09-01-2023 13:13-0500 Mean blood pressure 78 mm[Hg] KIRSTEN GUERRA MD [facility] 09-01-2023 13:13-0500 Systolic Blood Pressure Non-Invasive 109 mm[Hg] KIRSTEN UGERRA MD [facility] 09-01-2023 12:58-0500 Heart rate 88 /min KIRSTEN GUERRA MD [facility] 09-01-2023 12:58-0500 Mean blood pressure 80 mm[Hg] KIRSTEN GUERRA MD [facility] 09-01-2023 12:28-0500 Body temperature 97.52 [degF] KIRSTEN GUERRA MD [facility] 09-01-2023 11:25-0500 Respiratory Rate - Anes 4 br/min KIRSTEN GUERRA MD [facility] 09-01-2023 11:20-0500 Respiratory Rate - Anes 9 br/min KIRSTEN GUERRA MD [facility] 09-01-2023 11:15-0500 Body temperature 96.8 [degF] KIRSTEN GUERRA MD [facility] 09-01-2023 11:15-0500 Respiratory Rate - Anes 10 br/min KIRSTEN GUERRA MD [facility] 09-01-2023 10:45-0500 Body temperature 96.8 [degF] KIRSTEN GUERRA MD [facility] 09-01-2023 07:00-0500 Body height 170.2 cm KIRSTEN GUERRA MD [facility] 09-01-2023 07:00-0500 Body weight 94 kg KIRSTEN GUERRA MD [facility] 09-01-2023 07:00-0500 Heart rate 85 /min KIRSTEN GUERRA MD [facility] 06-02-2021 21:45-0400 Body height 170 cm TANI ENGLET DO [facility] 06-02-2021 21:45-0400 Body temperature 98.42 [degF] TANI ENGLET DO [facility] 06-02-2021 21:45-0400 Body weight 88.6 kg TANI FROMMELT DO [facility] 06-02-2021 21:45-0400 Diastolic blood pressure 85 mm[Hg] TANI ENGLET DO [facility] 06-02-2021 21:45-0400 Heart rate 89 /min TANI ENGLET DO [facility] 06-02-2021 21:45-0400 Respiratory rate 20 /min TANI ENGLET DO [facility] 06-02-2021 21:45-0400 Systolic blood pressure 138 mm[Hg] TANI ENGLET DO [facility] Encounters Encounter Date Encounter Type Care Provider Facility Start: 09-01-2023 End: 09-01-2023 ambulatory STACIE Mirza BRANDEN PROGRAM MANAGER-SOLAR INSTALLATION MANAGER Facility:A Start: 09-01-2023 End: 09-01-2023 SAME DAY STAY KIRSTEN GUERRA MD [facility] Start: 05-26-2023 End: 05-26-2023 ambulatory STACIE S BRANDEN PROGRAM MANAGER-SOLAR INSTALLATION MANAGER Facility:A Start: 05-12-2023 End: 05-13-2023 ambulatory STACIE S BRANDEN PROGRAM MANAGER-SOLAR INSTALLATION MANAGER Facility:A Start: 03-02-2023 End: 03-03-2023 ambulatory JACLYN BARAJAS DO Facility:B Start: 03-02-2023 End: 03-02-2023 Patient encounter procedure JACLYN BARAJAS DO [facility] Start: 01-19-2023 End: 01-20-2023 ambulatory STACIE S BRANDEN PROGRAM MANAGER-SOLAR INSTALLATION MANAGER Facility:B Start: 01-19-2023 End: 01-19-2023 Patient encounter procedure STACIE Mirza BRANDEN PROGRAM MANAGER-SOLAR INSTALLATION MANAGER [facility] Start: 12-31-2022 End: 01-01-2023 ambulatory STACIE OTERO PROGRAM MANAGER-SOLAR INSTALLATION MANAGER Facility:A Start: 12-29-2022 End: 12-30-2022 ambulatory STACIE OTERO PROGRAM MANAGER-SOLAR INSTALLATION MANAGER Facility:B Start: 02-16-2022 End: 02-20-2022 Outreach Lab CARLOS LOVE PROGRAM MANAGER-SOLAR INSTALLATION MANAGER [facility] Start: 06-02-2021 End: 06-02-2021 Emergency department patient visit TANI ROMAN DO [facility] Start: 05-20-2021 End: 05-20-2021 Patient encounter procedure STACIE OTERO PROGRAM MANAGER-SOLAR INSTALLATION MANAGER [facility] Procedures Date Procedure Procedure Detail Performing Clinician Start: 03-14-2023 Laminotomy KIRSTEN WILCOX CIA, MD Start: 10-02-2018 Mammography STACIE SHERLEY PAIGE PROGRAM MANAGER-SOLAR INSTALLATION MANAGER Immunizations Immunization Date Immunization Notes Care Provider Fa [facility] 05-16-2023 influenza, injectabl e, quadrivalent, contains preservative; Translations: [Fluarix PF Quadrivalent ] KIRSTEN GUERRA MD [facility] 07-15-2021 SARS-CoV-2 (COVID-19 ) mRNA-1273 vaccine CARLOS JONESCHIRAG PROGRAM MANAGER-SOLAR INSTALLATION MANAGER [facility] 11-26-2020 SARS-CoV-2 (COVID-19 ) mRNA-1273 vaccine CARLOS JONESCHIRAG PROGRAM MANAGER-SOLAR INSTALLATION MANAGER [facility] Payers Date Payer Category Payer Unknown [id number] 1970 Unknown [id number] [id number] [id number] 1970 Unknown [id number] 2.16.8 [id number] 1970 Unknown [id number] 2.16.8 [id number] 1970 Unknown [id number] 2.16.8 [id number] 1970 Unknown [id number] 2.16.8 [id number] 1970 Unknown [id number] 2.16.8 [id number] 1970 Unknown [id number] 2.16.8 [id number] Social History Date Type Detail Facility Start: 12-05-2019 Never smoked t obacco (finding) [facility] Sex Assigned At [facility] Medical Equipment Procedure Code Equipment Code Equipment Origin al Text Equipment Identifier Dates Hypoglossal Nerv e Stimulator Insertion Unknown 09/01/23 Unknown Unknown FDA Start: 09-01-2023 Hypoglossal Nerv e Stimulator Insertion Unknown 09/01/23 Unknown Unknown FDA Start: 09-01-2023 Hypoglossal Nerv e Stimulator Insertion Unknown 09/01/23 Unknown Unknown FDA Start: 09-01-2023 Functional Status Date Assessment Result Facility 09-01-2023 Functional Status Maintained [facility] 08-24-2023 Functional Status [facility] Mental Status Date Assessment Result Facility 09-01-2023 Mental Status Oriented x 4 [facility] Chengit [facility] 09-01-2023 Mental Status Alexi Cheng conchis Clinical Notes 06-03-2021 to 09-01-2023 LaboratoryRadiology Note Date & Type Note Facility 09-01-2023 Hospital Discharg e instructions Patient Education 09/01/2023 14:06:08 1-[facility] Discharge Instructions Template (05/2018) ALEXI SAME DAY SURGERY DISCHARGE INSTRUCTIONS PLEASE FOLLOW THE INSTRUCTIONS BELOW MARKED WITH AN X: _x_ Regular Diet: Start with clear liquids, then soup and crackers and gradually add other foods. _x_ Drink extra fluids. ___ Special Diet Instructions: ___ ACTIVITY: _x_ Avoid stress to suture line. Since you have had an anesthetic, it would be advisable not to drive, drink alcohol, or make major decisions over the next 24 hours. You may require more rest tonight and tomorrow. ___ May resume regular activity as tolerated. ___ Restrict activity as follows: ___ ___ Walk Only ___ ___ Do not go up and down stairs. ___ Do not ride in car until ___ ___ Do not drive car. ___ Do not have sexual intercourse. _x_ No heavy lifting, pushing or straining. _x_ Other: _Follow all of Dr. Guerra's instructions (see preprinted discharge instruction sheet: [facility] Post-Operative Instructions)__ BATHING/SHOWERING: ___ Sponge bathe until office visit. ___ Sitting in tub of warm water may relieve discomfort. ___ May tub bathe _x_ May shower in 48 hours, do not soak the incisions ___ On day after surgery sit in tub of warm water to soak off dressing. DRESSING: _x_ Keep operative area dry and clean for _48 hours__ _x_ Check the operative area for signs of bleeding. Apply pressure to the bleeding site if necessary and call your physician. ___ Change dressing as necessary using sterile dressing material or bandaid. ___ Reinforce dressing as necessary. ___ Change and care for wound as follows: ___ ___ Wear bra for ___ days following breast surgery for comfort. ___ Change drip pad as needed. ___ Wear scrotal support for comfort. WATCH FOR SIGNS OF INFECTION: (Usually appears 36-48 hours after surgery) Increased temperature (101 degrees Fahrenheit or higher) Redness or swelling Increased pain Foul odor or drainage. If you have any questions, please call your doctor at the number listed on your follow up instructions. Follow all instructions given to you by your physician. Please complete and return the survey you will be receiving in the mail to help us better serve our patients. Form: [id number]) R: 11/13 Follow Up Care 07/27/2023 12:28:32 With:KIRSTEN UGERRA MD, [facility] Address: [facility] [address] [place] [phone] When: Unknown Comments:Follow-up with Dr. Guerra as scheduled, if you do not have a follow-up appointment call the office to schedule. [facility] 09-01-2023 Anesthesiology Consult note Patient: BESSIE RUBIO Age: 52 years Sex: Female : 1970 Associated Diagnoses: None Author: CHADWICK MASON MD Assessment Postanesthesia assessment Vitals: Vital signs from flowsheet : Vital Signs 09/01/2023 13:44 EST Temperature Temporal Artery 36.0 DegC Peripheral Pulse Rate 88 bpm Respiratory Rate 18 br/min Systolic Blood Pressure Non-Invasive 120 mmHg Diastolic Blood Pressure Non-Invasive 71 mmHg 09/01/2023 13:28 EST Temperature Temporal Artery 36.0 DegC Heart Rate Monitored 88 bpm Respiratory Rate 18 br/min Systolic Blood Pressure Non-Invasive 113 mmHg Diastolic Blood Pressure Non-Invasive 63 mmHg Mean Arterial Pressure (NBP) 77 mmHg 09/01/2023 13:13 EST Heart Rate Monitored 82 bpm Respiratory Rate 18 br/min Systolic Blood Pressure Non-Invasive 109 mmHg Diastolic Blood Pressure Non-Invasive 62 mmHg Mean Arterial Pressure (NBP) 78 mmHg 09/01/2023 12:58 EST Heart Rate Monitored 88 bpm Respiratory Rate 18 br/min Systolic Blood Pressure Non-Invasive 118 mmHg Diastolic Blood Pressure Non-Invasive 63 mmHg Mean Arterial Pressure (NBP) 80 mmHg 09/01/2023 12:28 EST Temperature Temporal Artery 36.4 DegC Heart Rate Monitored 88 bpm Respiratory Rate 18 br/min Systolic Blood Pressure Non-Invasive 114 mmHg Diastolic Blood Pressure Non-Invasive 65 mmHg Mean Arterial Pressure (NBP) 80 mmHg 09/01/2023 12:13 EST Heart Rate Monitored 91 bpm Respiratory Rate 16 br/min Systolic Blood Pressure Non-Invasive 120 mmHg Diastolic Blood Pressure Non-Invasive 64 mmHg Mean Arterial Pressure (NBP) 79 mmHg 09/01/2023 11:58 EST Heart Rate Monitored 92 bpm Respiratory Rate 20 br/min Systolic Blood Pressure Non-Invasive 115 mmHg Diastolic Blood Pressure Non-Invasive 57 mmHg LOW Mean Arterial Pressure (NBP) 74 mmHg 09/01/2023 11:43 EST Heart Rate Monitored 92 bpm Respiratory Rate 18 br/min Systolic Blood Pressure Non-Invasive 115 mmHg Diastolic Blood Pressure Non-Invasive 65 mmHg Mean Arterial Pressure (NBP) 79 mmHg 09/01/2023 11:28 EST Temperature Temporal Artery 37.0 DegC Heart Rate Monitored 92 bpm Respiratory Rate 18 br/min Systolic Blood Pressure Non-Invasive 108 mmHg Diastolic Blood Pressure Non-Invasive 54 mmHg LOW Mean Arterial Pressure (NBP) 70 mmHg 09/01/2023 11:25 EST Respiratory Rate - Anes 4 br/min br/min 09/01/2023 11:22 EST Systolic Blood Pressure Non-Invasive 115 mmHg mmHg Diastolic Blood Pressure Non-Invasive 62 mmHg mmHg 09/01/2023 11:20 EST Heart Rate Monitored 90 bpm bpm Respiratory Rate - Anes 9 br/min br/min 09/01/2023 11:19 EST Systolic Blood Pressure Non-Invasive 111 mmHg mmHg Diastolic Blood Pressure Non-Invasive 57 mmHg mmHg 09/01/2023 11:16 EST Systolic Blood Pressure Non-Invasive 114 mmHg mmHg Diastolic Blood Pressure Non-Invasive 48 mmHg mmHg 09/01/2023 11:15 EST Temperature (Route Not Specified) 36 DegC DegC Heart Rate Monitored 87 bpm bpm Respiratory Rate - Anes 10 br/min br/min 09/01/2023 11:13 EST Systolic Blood Pressure Non-Invasive 109 mmHg mmHg Diastolic Blood Pressure Non-Invasive 57 mmHg mmHg 09/01/2023 11:11 EST Systolic Blood Pressure Non-Invasive 117 mmHg mmHg Diastolic Blood Pressure Non-Invasive 55 mmHg mmHg 09/01/2023 11:10 EST Heart Rate Monitored 83 bpm bpm Respiratory Rate - Anes 10 br/min br/min 09/01/2023 11:07 EST Systolic Blood Pressure Non-Invasive 104 mmHg mmHg Diastolic Blood Pressure Non-Invasive 51 mmHg mmHg 09/01/2023 11:05 EST Heart Rate Monitored 83 bpm bpm Respiratory Rate - Anes 10 br/min br/min 09/01/2023 11:04 EST Systolic Blood Pressure Non-Invasive 103 mmHg mmHg Diastolic Blood Pressure Non-Invasive 55 mmHg mmHg 09/01/2023 11:01 EST Systolic Blood Pressure Non-Invasive 104 mmHg mmHg Diastolic Blood Pressure Non-Invasive 51 mmHg mmHg 09/01/2023 11:00 EST Temperature (Route Not Specified) 36 DegC DegC Heart Rate Monitored 79 bpm bpm Respiratory Rate - Anes 13 br/min br/min 09/01/2023 10:57 EST Systolic Blood Pressure Non-Invasive 103 mmHg mmHg Diastolic Blood Pressure Non-Invasive 52 mmHg mmHg 09/01/2023 10:55 EST Heart Rate Monitored 80 bpm bpm Respiratory Rate - Anes 13 br/min br/min 09/01/2023 10:54 EST Systolic Blood Pressure Non-Invasive 85 mmHg mmHg Diastolic Blood Pressure Non-Invasive 39 mmHg mmHg 09/01/2023 10:50 EST Heart Rate Monitored 84 bpm bpm Respiratory Rate - Anes 13 br/min br/min Systolic Blood Pressure Non-Invasive 104 mmHg mmHg Diastolic Blood Pressure Non-Invasive 55 mmHg mmHg 09/01/2023 10:47 EST Systolic Blood Pressure Non-Invasive 99 mmHg mmHg Diastolic Blood Pressure Non-Invasive 62 mmHg mmHg 09/01/2023 10:45 EST Temperature (Route Not Specified) 36 DegC DegC Heart Rate Monitored 76 bpm bpm Respiratory Rate - Anes 13 br/min br/min 09/01/2023 10:44 EST Systolic Blood Pressure Non-Invasive 96 mmHg mmHg Diastolic Blood Pressure Non-Invasive 56 mmHg mmHg 09/01/2023 10:41 EST Systolic Blood Pressure Non-Invasive 102 mmHg mmHg Diastolic Blood Pressure Non-Invasive 56 mmHg mmHg 09/01/2023 10:40 EST Heart Rate Monitored 83 bpm bpm Respiratory Rate - Anes 13 br/min br/min 09/01/2023 10:38 EST Systolic Blood Pressure Non-Invasive 106 mmHg mmHg Diastolic Blood Pressure Non-Invasive 56 mmHg mmHg 09/01/2023 10:35 EST Heart Rate Monitored 77 bpm bpm Respiratory Rate - Anes 14 br/min br/min Systolic Blood Pressure Non-Invasive 102 mmHg mmHg Diastolic Blood Pressure Non-Invasive 58 mmHg mmHg 09/01/2023 10:33 EST Systolic Blood Pressure Non-Invasive 108 mmHg mmHg Diastolic Blood Pressure Non-Invasive 59 mmHg mmHg 09/01/2023 10:30 EST Temperature (Route Not Specified) 36 DegC DegC Heart Rate Monitored 74 bpm bpm Respiratory Rate - Anes 14 br/min br/min Systolic Blood Pressure Non-Invasive 66 mmHg mmHg Diastolic Blood Pressure Non-Invasive 55 mmHg mmHg 09/01/2023 10:26 EST Systolic Blood Pressure Non-Invasive 99 mmHg mmHg Diastolic Blood Pressure Non-Invasive 58 mmHg mmHg 09/01/2023 10:25 EST Heart Rate Monitored 70 bpm bpm Respiratory Rate - Anes 14 br/min br/min 09/01/2023 10:23 EST Systolic Blood Pressure Non-Invasive 100 mmHg mmHg Diastolic Blood Pressure Non-Invasive 64 mmHg mmHg 09/01/2023 10:20 EST Heart Rate Monitored 72 bpm bpm Respiratory Rate - Anes 14 br/min br/min Systolic Blood Pressure Non-Invasive 118 mmHg mmHg Diastolic Blood Pressure Non-Invasive 51 mmHg mmHg 09/01/2023 10:17 EST Systolic Blood Pressure Non-Invasive 96 mmHg mmHg Diastolic Blood Pressure Non-Invasive 55 mmHg mmHg 09/01/2023 10:15 EST Temperature (Route Not Specified) 36 DegC DegC Heart Rate Monitored 75 bpm bpm Respiratory Rate - Anes 14 br/min br/min 09/01/2023 10:14 EST Systolic Blood Pressure Non-Invasive 111 mmHg mmHg Diastolic Blood Pressure Non-Invasive 85 mmHg mmHg 09/01/2023 10:11 EST Systolic Blood Pressure Non-Invasive 99 mmHg mmHg Diastolic Blood Pressure Non-Invasive 52 mmHg mmHg 09/01/2023 10:10 EST Heart Rate Monitored 74 bpm bpm Respiratory Rate - Anes 14 br/min br/min 09/01/2023 10:08 EST Systolic Blood Pressure Non-Invasive 127 mmHg mmHg Diastolic Blood Pressure Non-Invasive 41 mmHg mmHg 09/01/2023 10:05 EST Heart Rate Monitored 73 bpm bpm Respiratory Rate - Anes 14 br/min br/min Systolic Blood Pressure Non-Invasive 136 mmHg mmHg Diastolic Blood Pressure Non-Invasive 124 mmHg mmHg 09/01/2023 10:02 EST Systolic Blood Pressure Non-Invasive 109 mmHg mmHg Diastolic Blood Pressure Non-Invasive 71 mmHg mmHg 09/01/2023 10:01 EST Systolic Blood Pressure Non-Invasive 113 mmHg mmHg Diastolic Blood Pressure Non-Invasive 101 mmHg mmHg 09/01/2023 10:00 EST Heart Rate Monitored 76 bpm bpm Respiratory Rate - Anes 14 br/min br/min 09/01/2023 9:56 EST Systolic Blood Pressure Non-Invasive 102 mmHg mmHg Diastolic Blood Pressure Non-Invasive 45 mmHg mmHg 09/01/2023 9:55 EST Heart Rate Monitored 77 bpm bpm Respiratory Rate - Anes 14 br/min br/min 09/01/2023 9:53 EST Systolic Blood Pressure Non-Invasive 128 mmHg mmHg Diastolic Blood Pressure Non-Invasive 104 mmHg mmHg 09/01/2023 9:50 EST Heart Rate Monitored 79 bpm bpm Respiratory Rate - Anes 14 br/min br/min Systolic Blood Pressure Non-Invasive 127 mmHg mmHg Diastolic Blood Pressure Non-Invasive 50 mmHg mmHg 09/01/2023 9:47 EST Systolic Blood Pressure Non-Invasive 114 mmHg mmHg Diastolic Blood Pressure Non-Invasive 74 mmHg mmHg 09/01/2023 9:45 EST Temperature (Route Not Specified) 36 DegC DegC Heart Rate Monitored 89 bpm bpm Respiratory Rate - Anes 14 br/min br/min 09/01/2023 9:44 EST Systolic Blood Pressure Non-Invasive 113 mmHg mmHg Diastolic Blood Pressure Non-Invasive 95 mmHg mmHg 09/01/2023 9:41 EST Systolic Blood Pressure Non-Invasive 140 mmHg mmHg Diastolic Blood Pressure Non-Invasive 93 mmHg mmHg 09/01/2023 9:40 EST Heart Rate Monitored 89 bpm bpm Respiratory Rate - Anes 14 br/min br/min 09/01/2023 9:38 EST Systolic Blood Pressure Non-Invasive 114 mmHg mmHg Diastolic Blood Pressure Non-Invasive 73 mmHg mmHg 09/01/2023 9:35 EST Heart Rate Monitored 82 bpm bpm Respiratory Rate - Anes 14 br/min br/min Systolic Blood Pressure Non-Invasive 114 mmHg mmHg Diastolic Blood Pressure Non-Invasive 87 mmHg mmHg 09/01/2023 9:32 EST Systolic Blood Pressure Non-Invasive 93 mmHg mmHg Diastolic Blood Pressure Non-Invasive 60 mmHg mmHg 09/01/2023 9:30 EST Temperature (Route Not Specified) 36 DegC DegC Heart Rate Monitored 78 bpm bpm Respiratory Rate - Anes 14 br/min br/min Systolic Blood Pressure Non-Invasive 106 mmHg mmHg Diastolic Blood Pressure Non-Invasive 56 mmHg mmHg 09/01/2023 9:26 EST Systolic Blood Pressure Non-Invasive 107 mmHg mmHg Diastolic Blood Pressure Non-Invasive 70 mmHg mmHg 09/01/2023 9:25 EST Heart Rate Monitored 80 bpm bpm Respiratory Rate - Anes 14 br/min br/min 09/01/2023 9:23 EST Systolic Blood Pressure Non-Invasive 90 mmHg mmHg Diastolic Blood Pressure Non-Invasive 80 mmHg mmHg 09/01/2023 9:20 EST Heart Rate Monitored 78 bpm bpm Respiratory Rate - Anes 14 br/min br/min Systolic Blood Pressure Non-Invasive 111 mmHg mmHg Diastolic Blood Pressure Non-Invasive 60 mmHg mmHg 09/01/2023 9:17 EST Systolic Blood Pressure Non-Invasive 113 mmHg mmHg Diastolic Blood Pressure Non-Invasive 61 mmHg mmHg 09/01/2023 9:15 EST Temperature (Route Not Specified) 36 DegC DegC Heart Rate Monitored 84 bpm bpm Respiratory Rate - Anes 10 br/min br/min 09/01/2023 9:14 EST Systolic Blood Pressure Non-Invasive 116 mmHg mmHg Diastolic Blood Pressure Non-Invasive 94 mmHg mmHg 09/01/2023 9:11 EST Systolic Blood Pressure Non-Invasive 107 mmHg mmHg Diastolic Blood Pressure Non-Invasive 63 mmHg mmHg 09/01/2023 9:10 EST Heart Rate Monitored 74 bpm bpm Respiratory Rate - Anes 10 br/min br/min 09/01/2023 9:08 EST Systolic Blood Pressure Non-Invasive 90 mmHg mmHg Diastolic Blood Pressure Non-Invasive 53 mmHg mmHg 09/01/2023 9:05 EST Heart Rate Monitored 74 bpm bpm Respiratory Rate - Anes 4 br/min br/min Systolic Blood Pressure Non-Invasive 97 mmHg mmHg Diastolic Blood Pressure Non-Invasive 57 mmHg mmHg 09/01/2023 9:02 EST Systolic Blood Pressure Non-Invasive 128 mmHg mmHg Diastolic Blood Pressure Non-Invasive 108 mmHg mmHg 09/01/2023 9:00 EST Temperature (Route Not Specified) 36 DegC DegC Heart Rate Monitored 83 bpm bpm Respiratory Rate - Anes 10 br/min br/min 09/01/2023 8:58 EST Systolic Blood Pressure Non-Invasive 126 mmHg mmHg Diastolic Blood Pressure Non-Invasive 101 mmHg mmHg 09/01/2023 8:56 EST Systolic Blood Pressure Non-Invasive 112 mmHg mmHg Diastolic Blood Pressure Non-Invasive 66 mmHg mmHg 09/01/2023 8:55 EST Heart Rate Monitored 76 bpm bpm Respiratory Rate - Anes 0 br/min br/min 09/01/2023 7:00 EST Temperature Temporal Artery 36.0 DegC Peripheral Pulse Rate 85 bpm Respiratory Rate 18 br/min Systolic Blood Pressure Non-Invasive 117 mmHg Diastolic Blood Pressure Non-Invasive 72 mmHg . Mental status: at preoperative baseline. Respiratory function: respirations are non-labored. Respiratory support: none. CV function: Normal rate, Regular rhythm. Cardiovascular support: none. Pain: Post op control see nursing medication documentation. Nausea status: denies nausea. Postoperative hydration status: euvolemic. Digitally Signed by CHADWICK MASON MD on 09/01/2023 02:50 PM [facility] 09-01-2023 Summary of episod e note Discharge Instructions Thank you for allowing [facility] to assist you with your healthcare needs. The following is important discharge information regarding your hospital visit. Your Care Team STACIE OTERO APRN-SOLAR INSTALLATION MANAGER What to do next Follow Up Appointments Follow Up with KIRSTEN GUERRA MD, [facility] When Why: Follow-up with Dr. Guerra as scheduled, if you do not have a follow-up appointment call the office to schedule. Where: [facility] [address] [place] [address] [address] [place] [address]- [phone] The Following Activity and Diet Have Been Ordered for You Discharge Activity - Ordered -- Follow the post-operative/post-procedure activity instructions provided by your physician's office., 09/01/23 13:53:00 EST Discharge Diet - Ordered -- Follow the post-operative/post-procedure diet instructions provided by your physician's office., 09/01/23 13:53:00 EST The Following Equipment Has Been Ordered for You Discharge Home Equipment Discharge Wound Care - Ordered -- Follow the post-operative/post-procedure wound care instructions provided by your physician's office., 09/01/23 13:53:00 EST The Following Treatments Have Been Ordered for You Discharge Labs No qualifying data available. Discharge Radiology No qualifying data available. Other Therapies No qualifying data available. Post Acute Orders No qualifying data available. Someone Will Contact You Regarding These Home Health Referrals No home referrals have been ordered for you. No one will call you. Allergies Adhesive Bandage (Blisters) Medications Please ask your primary doctor or pharmacist before taking any other medication not listed, including over the counter drugs, herbal medications, vitamins and or supplements as they may interact with your home medications. What How Much When Instructions Last Dose Unchanged naproxen (Aleve 220 mg oral tablet) 2 tab(s) by mouth Every 8 hours as needed for for pain Unchanged sertraline (sertraline 100 mg oral tablet) 1 tab(s) by mouth Once a day Unchanged zolpidem (zolpidem 6.25 mg oral tablet, extended release) 1 tab(s) by mouth Daily at bedtime as needed for as needed for sleep Please take this list to your next doctor s visit. Bring all medications you take, including over the counter medications, herbals and other supplements with you to your doctor s visit. Patients and families are reminded to discard old lists and to update any records with all medication providers or retail pharmacies. Education Materials [facility] SAME DAY SURGERY DISCHARGE INSTRUCTIONS PLEASE FOLLOW THE INSTRUCTIONS BELOW MARKED WITH AN X: _x_ Regular Diet: Start with clear liquids, then soup and crackers and gradually add other foods. _x_ Drink extra fluids. ___ Special Diet Instructions: ___ ACTIVITY: _x_ Avoid stress to suture line. Since you have had an anesthetic, it would be advisable not to drive, drink alcohol, or make major decisions over the next 24 hours. You may require more rest tonight and tomorrow. ___ May resume regular activity as tolerated. ___ Restrict activity as follows: ___ ___ Walk Only ___ ___ Do not go up and down stairs. ___ Do not ride in car until ___ ___ Do not drive car. ___ Do not have sexual intercourse. _x_ No heavy lifting, pushing or straining. _x_ Other: _Follow all of Dr. Guerra's instructions (see preprinted discharge instruction sheet: [facility] Post-Operative Instructions)__ BATHING/SHOWERING: ___ Sponge bathe until office visit. ___ Sitting in tub of warm water may relieve discomfort. ___ May tub bathe _x_ May shower in 48 hours, do not soak the incisions ___ On day after surgery sit in tub of warm water to soak off dressing. DRESSING: _x_ Keep operative area dry and clean for _48 hours__ _x_ Check the operative area for signs of bleeding. Apply pressure to the bleeding site if necessary and call your physician. ___ Change dressing as necessary using sterile dressing material or bandaid. ___ Reinforce dressing as necessary. ___ Change and care for wound as follows: ___ ___ Wear bra for ___ days following breast surgery for comfort. ___ Change drip pad as needed. ___ Wear scrotal support for comfort. WATCH FOR SIGNS OF INFECTION: (Usually appears 36-48 hours after surgery) Increased temperature (101 degrees Fahrenheit or higher) Redness or swelling Increased pain Foul odor or drainage. If you have any questions, please call your doctor at the number listed on your follow up instructions. Follow all instructions given to you by your physician. Please complete and return the survey you will be receiving in the mail to help us better serve our patients. Form: 1520 ([id number]) R: 11/13 Additional Information VACCINATE! IT SAVES LIVES! Members of the community who have not yet received the COVID-19 vaccine and would like to receive it can visit one of [facility] vaccine clinics. There are many vaccine clinic locations within the [facility]. For locations and available times, please visit [email or web address].o hio.gov/. It is important to note that some COVID mobile vaccine clinics are held outdoors and may be canceled in rainy or stormy conditions. To learn more about pediatric vaccinations (ages 5-11), we invite you to visit the [employer] webpage. [email or web address] To learn more about the COVID-19 vaccine, we invite you to visit the CDC website for a list of frequently asked questions.https://www.cdc.gov/co ronavirus/2019-ncov/vaccines/faq .html [facility] Patient Portal Access Instructions: Stay connected with your healthcare team and access your personal medical information anytime with the [facility] Patient Portal. Please follow the directions below to create your [facility] account: 1.Access the email account you provided upon registration to the hospital/physician office.2.Look for an invitation email from [facility].3.Open the email and access the invitation link: Accept Invitation to [facility].4.Fill in the required bills to create your account. To access your account, visit [employer]. Click the blue button labeled Access Patient Portal and then log in with the username and password that you created in the steps above. You will be able to view your test results, lab results, a summary of your visits, upcoming appointments and more. There is also a convenient messaging option where you can send secure messages to your provider. In addition, you will have the ability to download any documents or summaries to your computer and/or send the information securely to a physician. Remember that your healthcare information is confidential, so carefully consider who you will allow to register on the [facility] for access to your information. You can also access the [facility] Patient Portal on the [facility] a[facility]. Simply click on Patient Portal and then log into your account. If you would like to receive a full copy of your medical records, please contact the [facility] Medical Records Department by calling [phone], Monday through Monday between 8 a.m. and 4:30 p.m. HOW TO SAFELY DISPOSE OF PRESCRIPTION MEDICATIONS Please use one of the following methods to safely dispose of your unused medications. 1.Use a drug disposal kit: the drug disposal pouch allows you to safely discard your old and unused drugs. Ask your nurse to give you one when you are discharged.2.Visit a local take-back location: Many local pharmacies and police departments have programs that collect old and unwanted prescription drugs. Call your local pharmacy or go to http://[employer]/6Y2Ia2d to find one close to you.3.Make use of household items: Use cat litter or old coffee grounds to dispose medications if other options are not available. Mix your drugs with these household products, seal them in an airtight container and throw it into the garbage. Call [facility]: [phone] to be sure your drugs can be disposed of in this way. Some medicines may require a different approach.4.Never flush your medications down the toilet. IF YOU HAVE BEEN PRESCRIBED AN OPIOID FOR PAIN If you have been prescribed an opioid (such as hydrocodone, oxycodone or morphine), it is critical to understand the possible side effects and risks of opioid pain medications. Even when taken as directed, opioids can have several side effects including: Tolerance, meaning you might need to take more of a medication for the same pain relief. Nausea, vomiting and/or constipation. Sleepiness, dizziness, dry mouth, confusion, depression or itching. Physical dependence, meaning you have withdrawal symptoms when a medication is stopped, can develop within a few days. KNOW YOUR RESPONSIBILITIES It is important to know exactly how much and how often to take the opioid pain medications you are prescribed. Never take opioids in higher amounts or more often than prescribed. Do not combine opioids with alcohol or other drugs that cause drowsiness, such as benzodiazepines, also known as benzos, including diazepam and alprazolam, muscle relaxants or sleep aids. Never sell or share prescription opioids. This is illegal. Store opioids in a secure place and out of reach of others (including children, family, friends and visitors). The last page of this document has been signed and retained as a CHART COPY. Signatures Patient Education Materials 1-SDS Discharge Instructions Template (05/2018) Medication Leaflets My discharge plan and instructions have been reviewed and explained to me and I,BESSIE RUBIO understand my current condition and have read and understand these discharge instructions. I have received a written copy of the plan/instructions. If I have questions, I am aware that I should contact my doctor. 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 Family's history: negative. History of Present Illness The patient presents for preanesthesia evaluation with 52-year-old female with a past medical history of sleep apnea (unable to tolerate CPAP), obesity (BMI 32.55), tachycardia, anxiety, depression, insomnia, fibromyalgia who presents for a hypoglossal nerve stimulator insertion. She reports a history of delayed emergence from general anesthesia. Denies other personal or known family history of complications with anesthesia. She denies history of ischemic heart disease or allergy. She denies chest pain, chest pressure, palpitations, syncope, or edema. She can do greater than 4 METS. She denies recent fever, chills cough, congestion, nausea, vomiting. She denies GERD symptoms. . Review of Systems Ear/Nose/Mouth/Throat: Negative except as documented in history of present illness. Respiratory: Negative except as documented in history of present illness. Cardiovascular: Negative except as documented in history of present illness. Gastrointestinal: Negative except as documented in history of present illness. Genitourinary: Negative except as documented in history of present illness. Endocrine: Negative except as documented in history of present illness. Musculoskeletal: Negative except as documented in history of present illness. Integumentary: Negative except as documented in history of present illness. Neurologic: Negative except as documented in history of present illness. Health Status Allergies: Allergic Reactions (Selected) Severity Not Documented Adhesive Bandage- Blisters., Allergies (1) ActiveReaction Adhesive BandageBlisters Current medications: (Selected) Inpatient Medications Ordered Lactated Ringers Infusion 1,000 mL: 20 mL/hr, Intravenous Prescriptions Prescribed sertraline 100 mg oral tablet: 100 mg, 1 tab(s), Oral, qDay, 90 tab(s), 1 Refill(s) Documented Medications Documented Aleve 220 mg oral tablet: 440 mg, 2 tab(s), Oral, q8h, PRN: for pain zolpidem 6.25 mg oral tablet, extended release: 6.25 mg, 1 tab(s), Oral, qHS, PRN: as needed for sleep, 0 Refill(s), Medications (1) Active Scheduled: (0) Continuous: (1) Lactated Ringers 1,000 mL 1,000 mL, Intravenous, 20 mL/hr PRN: (0) Problem list: Medical Allergic rhinitis / SNOMED CT 847568965 / Confirmed Anxiety / SNOMED CT 37439732 / Confirmed Depression / SNOMED CT 28952471 / Confirmed Fibromyalgia / SNOMED CT 655313753 / Confirmed Generalized anxiety disorder / SNOMED CT 32329678 / Confirmed Insomnia / SNOMED CT 182569825 / Confirmed Well adult health check / SNOMED CT 848014124 / Confirmed Screening for colon cancer / SNOMED CT 228527667 / Confirmed Sleep apnea / SNOMED CT 081431435 / Confirmed Tachycardia / SNOMED CT 7392641 / Confirmed Resolved: Chest pressure / SNOMED CT 909060245 Resolved: GERD (gastroesophageal reflux disease) / SNOMED CT 171034411 Resolved: Low back pain / SNOMED CT 298621954 Resolved: Pain of left calf / SNOMED CT 607948751 Resolved: Lumbar disc herniation / SNOMED CT 133701215 Resolved: Radicular low back pain / SNOMED CT Canceled: Acute low back pain with left-sided sciatica / SNOMED CT 291173301 Canceled: Cough / SNOMED CT 62847085 Canceled: Cystitis / SNOMED CT 28960367 Canceled: History of 3 sections / SNOMED CT 311048798 Canceled: Snoring / SNOMED CT 714981319 Canceled: Trigger finger of right hand / SNOMED CT 913397124 Canceled: Upper abdominal pain / SNOMED CT 425008749, Active Problems (2018 novel coronavirus disease (COVID-19) Allergic rhinitis Anxiety Bilateral swelling of feet and ankles Carpal tunnel syndrome Depression Fatigue Fibromyalgia Generalized anxiety disorder Glasses Insomnia Intolerance of continuous positive airway pressure (CPAP) ventilation Muscle pain Panic attack Screening for colon cancer Seasonal allergy Sleep apnea Slow to wake up after anesthesia Snores Swelling of both hands Tachycardia Well adult health check Histories Past Medical History: Resolved GERD (gastroesophageal reflux disease) (852080383): Resolved. Chest pressure (652363235): Resolved. Low back pain (076571855): Resolved. Radicular low back pain (39565036): Resolved. Pain of left calf (249053430): Resolved. Lumbar disc herniation (346639941): Resolved. Procedure history: Laminotomy (137873918) on 03/14/2023 at 52 Years. Mammogram (629986673) on 10/02/2018 at 47 Years. Comments: 06/05/2019 17:35 Nadira Reed RN [place] Carlos Guerrero Pap smear and HPV cotesting (679460049779828) in the month of 11/2015 at 45 Years. Comments: 06/05/2019 17:36 Nadira Reed RN [facility] Carlos, Normal Eye examination (29787229) in 2015 at 45 Years. Lymph node operation (983526674) in 1994 at 24 Years. Comments: 10/03/2019 8:29 EST - Yisel De Jesus LPN 11/1994 benign section (62368935). Comments: 05/12/2023 14:23 EDT - MCKENZIE Gloria Marissa x 3 Dilation and curettage (74545109). [place] tooth (62331600). 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 Physical Examination Vital Signs(last 24 hrs) Last Charted SDX485 mmHg (SEP 01 07:00) DBP72 mmHg (SEP 01 07:00) Measurements from flowsheet : Measurements 09/01/2023 7:00 EST Height 170.2 cm Height in inches 67 inch(es) Admission Weight 94 kg Weight Lbs 206.8 lb Weight Method Actual [place] Body Weight 61.62 kg Type of Scale Used Bed scale Admission Body Mass Index 32.45 m2 General: Alert and oriented, No acute distress. Airway: Normal temporomandibular joint mobility, Normal mouth, Normal neck range of motion. Mallampati classification: III (soft palate, base of uvula visible). Dentition Evaluation: Intact, Own teeth. Respiratory: Lungs are clear to auscultation. Cardiovascular: Normal rate, Regular rhythm. Heart Sounds: Normal. Neurologic: Alert, Oriented, No focal deficits. Review / Management Results review: No qualifying data available . Documentation reviewed: Current records. Assessment and Plan [place] [employer] Anesthesiologists (ASA) physical status classification: Class III. Anesthetic Preoperative Plan Premedication: intravenous. Anesthetic technique: General. Induction: intravenously. Maintenance airway: Oral endotracheal tube. Postoperative pain management: Per surgeon. Risks discussed: nausea, vomiting, sore throat, dental injury, hypotension, allergic reaction, serious complications. Informed consent: signed by patient. Digitally Signed by CHADWICK MASON MD on 09/01/2023 07:58 AM [facility] 06-03-2021 Hospital Discharg e instructions Patient Education 06/02/2021 22:44:54 Shoulder Pain, Uncertain Cause Shoulder Pain with Uncertain Cause Shoulder pain can have many causes. Pain often comes from the structures that surround the shoulder joint. These are the joint capsule, ligaments, tendons, muscles, and bursa. Pain can also come from cartilage in the joint. Cartilage can become worn out or injured. It s important to know what s causing your pain so the healthcare provider can use the correct treatment. But sometimes it s difficult to find the exact cause of shoulder pain. You may need to see a specialist (orthopedist). You may also need special tests such as a CT scan or MRI. The provider may need to use special tools to look inside the joint (arthroscopy). Shoulder pain can be treated with a sling or a device that keeps your shoulder from moving. You can take an anti-inflammatory medicine such as ibuprofen to ease pain. You may need to do special shoulder exercises. Follow up with a specialist if the pain is severe or doesn t go away after a few weeks. Home care Follow these tips when caring for yourself at home: If a sling was given to you, leave it in place for the time advised by your healthcare provider. If you aren t sure how long to wear it, ask for advice. If the sling becomes loose, adjust it so that your forearm is level with the ground. Your shoulder should feel well supported. Put an ice pack on the injured area for 20 minutes every 1 to 2 hours the first day. You can make your own ice pack by putting ice cubes in a plastic bag. Wrap the bag in a thin towel. Continue with ice packs 3 to 4 times a day for the next 2 days. Then use the pack as needed to ease pain and swelling. You may use acetaminophen or ibuprofen to control pain, unless another pain medicine was prescribed. If you have chronic liver or kidney disease, talk with your healthcare provider before using these medicines. Also talk with your provider if you ve ever had a stomach ulcer or GI bleeding. Shoulder pain may seem worse at night, when there is less to distract you from the pain. If you sleep on your side, try to keep weight off your painful shoulder. Propping pillows behind you may stop you from rolling over onto that shoulder during sleep. Shoulder and elbow joints can become stiff if left in a sling for too long. You should start range of motion exercises about 7 to 10 days after the injury. Talk with your provider to find out what type of exercises to do and how soon to start. You can take the sling off to shower or bathe. Follow-up care Follow up with your healthcare provider if you don t start to get better in the next 5 days. When to seek medical advice Call your healthcare provider right away if any of these occur: Pain or swelling gets worse or continues for more than a few days Your hand or fingers become cold, blue, numb, or tingly Large amount of bruising on your shoulder or upper arm Difficulty moving your hand or fingers Weakness in your hand or fingers Your shoulder becomes stiff It feels like your shoulder is popping out You are less able to do your daily activities [phone] [employer]. [address] [place] [address]. All rights reserved. This information is not intended as a substitute for professional medical care. Always follow your healthcare professional's instructions. Follow Up Care 06/02/2021 21:37:34 With:STACIE OTERO Address: [address] [place] [address] [place] [address]- [phone] When:2-4 days [facility] Evaluation + Plan note Future Appointments Appointment Date:11/18/2021 08:30:00 AM Scheduled Provider:STACIE OTERO Location:[facility] Appointment Type:PC OV Future Scheduled TestsLipid Profile 11/19/20XR Chest 2 Views (PA & Lateral) 09/10/20 [facility] Evaluation + Plan note Future Appointments Appointment Date:05/25/2022 09:30:00 AM Scheduled Provider:STACIE OTERO Location:[facility] Appointment Type:PC OV Controlled Medication [facility] Evaluation + Plan note Future Appointments Appointment Date:05/16/2023 09:00:00 AM Scheduled Provider:STACIE OTERO Location:[facility] Appointment Type:PC OV Controlled Medication [facility] Hospital course Narrative No data available for this section [facility] Discharge instructions No data available for this section [facility] Progress note No data available for this section [facility] Summary Purpose Family History No Family History Records Found No data available for this section No Family History Records Found No data available for this section Advance Directives No Advanced Directives Records FoundNo Advanced Directives Records Found Additional Source Comments INFORMATION SOURCE (unrecogn ized section and content) DATE CREATED AUTHOR AUTHOR'S ORGANIZ ATION 09/02/2023 [facility] ([place]) Care Team (unrecognized sect ion and content) Care Team Personnel Name: STACIE OTERO Position: P4 Advanced Practice Nurse Med Service: Employed Provider Member Role: Primary Care Physician Address: Address: [address] Care Team Related Persons Name: TESFAYE RUBIO Address: Home [address] [place], [place] [id number] Patient Care team informatio n (unrecognized section and content) Care Team Personnel Name: STACIE OTERO Position: P4 Advanced Children Teacher Member Role: Primary Care Physician Address: Address: [address] [place], [place] [id number] [place] [address] Care Team Related Persons Name: TESFAYE RUBIO Address: Home [address] [place], [place] [id number] Care Team Personnel Name: STACIE OTERO Position: P4 Advanced Children Teacher Member Role: Primary Care Physician Address: Address: [address] [place], [place] [id number] [place] [address] Care Team Related Persons Name: TESFAYE RUBIO Address: Home [address] [place], [place] [phone] Care Team Personnel Name: Janell Lynn Yuki Position: Bed Management Member Role: Other Name: STACIE OTERO PROGRAM MANAGER-SOLAR INSTALLATION MANAGER Position: P4 Advanced Children Teacher Member Role: Primary Care Physician Address: Address: [address] [place], [place] [address] Care Team Related Persons Name: TESFAYE RUBIO Address: Home [address] [place], [place] [id number] FOR RECORDS PERTAINING TO PATIENTS WHO ARE OR HAVE BEEN ENROLLED IN A CHEMICAL DEPENDENCY/SUBSTANCEABUSE PROGRAM, SOME INFORMATION MAY BE OMITTED. This clinical summary was aggregated from multiple sources. Caution should be exercised in using it in the provision of clinical care. This summary normalizes information from multiple sources, and as a consequence, information in this document may materially change the coding, format and clinical context of patient data. In addition, data may be omitted in some cases. CLINICAL DECISIONS SHOULD BE BASED ON THE PRIMARY CLINICAL RECORDS. [facility] [employer] provides no warranty or guarantee of the accuracy or completeness of information in this document.
== END | disposition home or self-care (01) ==
LOC: US 12:24
PROVIDERS: PCP Nurse Practitioner Primary Care; Referring Provider Nurse Practitioner Women's Health; Visit Provider Nurse Practitioner Women's Health
DX: N95.0 Postmenopausal bleeding (principal)
CPT/HCPCS: 76830; 76856

== ENCOUNTER → 2024-01-16 | Outpatient (CLI) | payer OTHER, SELFPAY ==
[2024-01-16 17:21] LABS: Absolute Lymphocyte Count 3.14 X10^3/uL (0.83-4.51); Absolute Neutrophil Count 7.5 X10^3/uL (2.0-7.7); Basophil# 0.07 X10^3/uL; Basophil% 0.6 % (0-1); Eosinophil# 0.17 X10^3/uL; Eosinophils% 1.5 % (0-5); Lymphocyte # 3.14 X10^3/ul (0.83-4.51); Lymphocyte % 26.9 % (19-41); Mean Corp Hgb Conc 32.5 g/dL (32-36); Mean Corpuscular Hgb 27.4 pg (27.0-32.0); Mean Corpuscular Volume 84.4 fL (81-99); Mean Platelet Vol. 10.2 fl (6.2-12.0); Monocyte# 0.77 X10^3/uL; Monocyte% 6.6 % (0-10); NRBC Flagged by Analyzer 0 % (0-5); Neutrophil # 7.48 X10^3/uL (2.7-7.7); Platelet Count 318 K/mm3 (150-450); RBC Distribution Width CV 14.1 % (11.6-14.6); RBC Distribution Width SD 43.3 fl (35.1-43.9); Red Blood Count 4.74 M/mm3 (4.2-5.4); White Blood Count 11.7 K/mm3 (4.4-11.0)
[2024-01-16 17:26] LABS: POSITIVE COUNT NO; POSITIVE DIFFERENTIAL NO; POSITIVE MORPHOLOGY NO
[2024-01-16 17:35] LABS: Vitamin D,25 Hydroxy 18.8 ng/mL
[2024-01-16 17:39] LABS: Hemoglobin A1c 6.6 % (3.8-5.6)
[2024-01-16 17:41] LABS: Thyroid Stim Hormone (TSH) 1.72 uIU/mL (0.358-3.74)
== END | disposition home or self-care (01) ==
PROVIDERS: PCP Nurse Practitioner Primary Care; Referring Provider Obstetrics & Gynecology; Visit Provider Obstetrics & Gynecology
DX: Z13.1 Encounter for screening for diabetes mellitus (principal); Z13.21 Encounter for screening for nutritional disorder; Z13.29 Encounter for screening for other suspected endocrine disorder; Z13.0 Encounter for screening for diseases of the blood and blood-forming organs and certain disorders involving the immune mechanism
CPT/HCPCS: 36415; 82306; 83036; 84443; 85025

== ENCOUNTER → 2024-07-08 | Outpatient (CLI) | payer OTHER, SELFPAY ==
--- NOTE | 2024-07-08 08:55 | BI_ITS ---
MAMMOGRAPHY - BILATERAL SCREENING REASON FOR EXAM: Female, 53 years old. Routine annual screening examination. PERTINENT HISTORY: Mother with breast cancer. TECHNIQUE: Digital bilateral breast concepcion (3D mammographic acquisition) in the CC and MLO projections. 2-D mediolateral oblique (MLO) and craniocaudad (CC) views of both breasts were obtained. CAD: Full Field Digital Mammography with Computer Added Detection was performed. COMPARISON: Comparison is made with prior study dated July 06, 2023 and March 17, 2022. FINDINGS: Breast Composition: There are scattered areas of fibroglandular density. There are no dominant masses or suspicious calcifications. Stable bilateral fat containing axillary lymph nodes. No other significant abnormalities are identified. There has been no significant change since the prior study. BI/SCRN MAMM (CAD)W/CONCEPCION BILAT IMPRESSION: Stable bilateral screening mammogram. Yearly follow-up mammogram recommended. (A) ASSESSMENT CATEGORY: BIRADS Category 2: Benign. A letter regarding these results will be sent to the patient by the facility within 30 days. Approximately 10% of breast cancers are not detected by mammography. A normal mammogram should not delay biopsy of a clinically suspicious abnormality. [id number] Electronically Signed: Michael Frey MD at 13:37 EST ,
== END | disposition home or self-care (01) ==
LOC: OPBI 08:55
PROVIDERS: PCP Nurse Practitioner Primary Care; Referring Provider Obstetrics & Gynecology; Visit Provider Obstetrics & Gynecology
DX: Z12.31 Encounter for screening mammogram for malignant neoplasm of breast (principal); Z80.3 Family history of malignant neoplasm of breast
CPT/HCPCS: 77063; 77067

== ENCOUNTER → 2024-11-13 | Outpatient (CLI) | payer OTHER, SELFPAY ==
[2024-11-19 12:08] LABS: HPV APTIMA, High Risk Negative (Negative)
== END | disposition home or self-care (01) ==
LOC: LABSPEC 13:51
PROVIDERS: PCP Nurse Practitioner Primary Care; Referring Provider Obstetrics & Gynecology; Visit Provider Obstetrics & Gynecology
DX: Z12.4 Encounter for screening for malignant neoplasm of cervix (principal); Z78.0 Asymptomatic menopausal state
CPT/HCPCS: 87624; 88175; G0145

== ENCOUNTER → 2025-07-14 | Outpatient (CLI) | payer OTHER, SELFPAY ==
--- NOTE | 2025-07-14 15:45 | BI_ITS ---
EXAM: SCRN MAMM (CAD)W/CONCEPCION BILAT DATE: 07/14/2025 CLINICAL HISTORY: F, Age 54 y/o , SCREENING MAMMOGRAM TECHNIQUE: Procedure Code: [id number] Modality: MG Procedure: SCRN MAMM (CAD)W/CONCEPCION BILAT COMPARISON: Prior exam(s) were compared FINDINGS: TISSUE DENSITY: There are scattered areas of fibroglandular density. Bilateral Breast Mammographic Findings: No significant masses, calcifications or other abnormalities are identified. BI/SCRN MAMM (CAD)W/CONCEPCION BILAT IMPRESSION: No mammographic evidence of malignancy. OVERALL FINAL ASSESSMENT BI-RADS 1: NEGATIVE. RECOMMENDATION: Routine annual follow-up in 1 Year Additional Recommendation none A letter with findings and recommendations will be mailed to the patient. Reading Location: [id number]
== END | disposition home or self-care (01) ==
PROVIDERS: PCP Nurse Practitioner Primary Care; Referring Provider Obstetrics & Gynecology; Visit Provider Obstetrics & Gynecology
DX: Z12.31 Encounter for screening mammogram for malignant neoplasm of breast (principal)
CPT/HCPCS: 77063; 77067